=== PATIENT | male | born 1970 | race Caucasian/White ===

== ENCOUNTER 2017-04-24 05:15 | Observation (INO) | payer OTHER ==
[2017-04-24] MEDS ORDERED: SODIUM CHLORIDE 0.9% 1,000 ML IV STA (05:58)
--- NOTE | 2017-04-24 06:16 | ED ---
Dizziness HPI - General Chief Complaint: Dizziness Stated Complaint: Dizziness Time Seen by Provider: 04/24/17 05:57 Source: EMS Mode of arrival: EMS Limitations: no limitations - History of Present Illness Initial Comments: This patient is 46-year-old man who presents to be evaluated for what he is constant dizziness. He is describing as a spinning sensation. He states that also is accompanied by numbness and tingling to his scalp and to his fingers and feet. Patient states that this been going on for months to possibly years and is intermittent. States the episodes, most frequently in the morning. He has tried taking orange juice for this bleeding it may be related to blood sugar but has no effect. MD Complaint: dizziness -: month(s) Timing: intermittent Description: "room spinning" History of Same: Yes History of Trauma: No Severity: moderate Improves With: nothing Worsens With: nothing - Related Data Allergies Allergy/AdvReac Type Severity Reaction Status Date / Time meperidine [From Demerol] Allergy Nausea Verified 04/24/17 05:27 Review of Systems ROS Statement: Those systems with pertinent positive or pertinent negative responses have been documented in the HPI. ROS Other: All systems not noted in ROS Statement are negative. Constitutional: Denies: fever, chills Respiratory: Denies: cough, dyspnea Cardiovascular: Denies: chest pain, edema Gastrointestinal: Denies: abdominal pain, vomiting, diarrhea Genitourinary: Denies: dysuria, hematuria Musculoskeletal: Denies: back pain Skin: Denies: rash Neurological: Reports: paresthesias. Denies: headache, weakness, numbness Psychiatric: Reports: anxiety Past Medical History Past Medical History: No Reported History Additional Past Medical History / Comment(s): Bipolar "when younger" per patient. History of Any Multi-Drug Resistant Organisms: None Reported Past Surgical History: No Surgical Hx Reported Past Psychological History: Bipolar Smoking Status: Former smoker Past Alcohol Use History: None Reported Past Drug Use History: None Reported General Exam Limitations: no limitations General appearance: alert, in no apparent distress, obese Head exam: Present: atraumatic, normocephalic, normal inspection Eye exam: Present: normal appearance. Absent: scleral icterus, conjunctival injection ENT exam: Present: normal oropharynx Neck exam: Present: normal inspection, full ROM Respiratory exam: Present: normal lung sounds bilaterally. Absent: respiratory distress, wheezes, rales, rhonchi, stridor Cardiovascular Exam: Present: regular rate, normal rhythm, normal heart sounds. Absent: systolic murmur, diastolic murmur, rubs, gallop GI/Abdominal exam: Present: soft. Absent: distended, tenderness, guarding, rebound, mass, pulsatile mass Extremities exam: Present: normal inspection, normal capillary refill. Absent: pedal edema, calf tenderness Back exam: Present: normal inspection. Absent: CVA tenderness (R), CVA tenderness (L) Neurological exam: Present: alert Psychiatric exam: Present: anxious Skin exam: Present: warm, dry, intact, normal color. Absent: rash Course Vital Signs 04/24/17 04/24/17 04/24/17 05:16 06:45 06:59 Temperature 98.0 F 98.2 F Pulse Rate 63 65 Pulse Rate [ 60 Sitting Machine Set Up Operator Paper Goods] Pulse Rate [ 69 Standing Machine Set Up Operator Paper Goods ] Pulse Rate [ 64 Supine Machine Set Up Operator Paper Goods] Respiratory 20 20 Rate Blood Pressure 150/93 162/96 Blood Pressure 168/95 [Right Arm Sitting] Blood Pressure 170/101 [Right Arm Standing] Blood Pressure 167/93 [Right Arm Supine] O2 Sat by Pulse 66 L Oximetry EKG Findings - EKG Results: EKG: interpreted by CHERYL CONTRERAS, sinus rhythm (Rate 64 bpm), normal axis, normal QRS, normal ST/T, no acute changes Medical Decision Making - Lab Data Result diagrams: 04/24/17 06:20 04/24/17 06:20 Lab Results 04/24/17 04/24/17 04/24/17 Range/Units 06:20 06:20 06:20 WBC 8.5 (3.8-10.6) k/uL RBC 4.87 (4.30-5.90) m/uL Hgb 14.9 (13.0-17.5) gm/dL Hct 44.7 (39.0-53.0) % MCV 91.8 (80.0-100.0) fL MCH 30.6 (25.0-35.0) pg MCHC 33.4 (31.0-37.0) g/dL RDW 13.4 (11.5-15.5) % Plt Count 196 (150-450) k/uL Neutrophils % 75 % Lymphocytes % 13 % Monocytes % 6 % Eosinophils % 2 % Basophils % 1 % Neutrophils # 6.3 (1.3-7.7) k/uL Lymphocytes # 1.1 (1.0-4.8) k/uL Monocytes # 0.5 (0-1.0) k/uL Eosinophils # 0.2 (0-0.7) k/uL Basophils # 0.1 (0-0.2) k/uL Sodium 138 (137-145) mmol/L Potassium 4.0 (3.5-5.1) mmol/L Chloride 103 (98-107) mmol/L Carbon Dioxide 23 (22-30) mmol/L Anion Gap 12 mmol/L BUN 22 H (9-20) mg/dL Creatinine 0.74 (0.66-1.25) mg/dL Est GFR (MDRD) Af Amer >60 (>60 ml/min/1.73 sqM) Est GFR (MDRD) Non-Af >60 (>60 ml/min/1.73 sqM) Glucose 127 H (74-99) mg/dL Calcium 9.1 (8.4-10.2) mg/dL Total Bilirubin 1.2 (0.2-1.3) mg/dL AST 28 (17-59) U/L ALT 63 (21-72) U/L Alkaline Phosphatase 65 (38-126) U/L Troponin I (0.000-0.034) ng/mL Total Protein 6.9 (6.3-8.2) g/dL Albumin 4.0 (3.5-5.0) g/dL Urine Color Light Yellow Urine Appearance Clear (Clear) Urine pH 6.5 (5.0-8.0) Ur Specific [place] 1.015 (1.001-1.035) Urine Protein Negative (Negative) Urine Glucose (UA) Negative (Negative) Urine Ketones Negative (Negative) Urine Blood Negative (Negative) Urine Nitrite Negative (Negative) Urine Bilirubin Negative (Negative) Urine Urobilinogen <2.0 (<2.0) mg/dL Ur Leukocyte Esterase Negative (Negative) Urine Opiates Screen Not Detected (NotDetected) Ur Oxycodone Screen Not Detected (NotDetected) Urine Methadone Screen Not Detected (NotDetected) Ur Propoxyphene Screen Not Detected (NotDetected) Ur Barbiturates Screen Not Detected (NotDetected) U Tricyclic Antidepress Not Detected (NotDetected) Ur Phencyclidine Scrn Not Detected (NotDetected) Ur Amphetamines Screen Not Detected (NotDetected) U Methamphetamines Scrn Not Detected (NotDetected) U Benzodiazepines Scrn Not Detected (NotDetected) Urine Cocaine Screen Not Detected (NotDetected) U Marijuana (THC) Screen Not Detected (NotDetected) 04/24/17 Range/Units 06:20 WBC (3.8-10.6) k/uL RBC (4.30-5.90) m/uL Hgb (13.0-17.5) gm/dL Hct (39.0-53.0) % MCV (80.0-100.0) fL MCH (25.0-35.0) pg MCHC (31.0-37.0) g/dL RDW (11.5-15.5) % Plt Count (150-450) k/uL Neutrophils % % Lymphocytes % % Monocytes % % Eosinophils % % Basophils % % Neutrophils # (1.3-7.7) k/uL Lymphocytes # (1.0-4.8) k/uL Monocytes # (0-1.0) k/uL Eosinophils # (0-0.7) k/uL Basophils # (0-0.2) k/uL Sodium (137-145) mmol/L Potassium (3.5-5.1) mmol/L Chloride (98-107) mmol/L Carbon Dioxide (22-30) mmol/L Anion Gap mmol/L BUN (9-20) mg/dL Creatinine (0.66-1.25) mg/dL Est GFR (MDRD) Af Amer (>60 ml/min/1.73 sqM) Est GFR (MDRD) Non-Af (>60 ml/min/1.73 sqM) Glucose (74-99) mg/dL Calcium (8.4-10.2) mg/dL Total Bilirubin (0.2-1.3) mg/dL AST (17-59) U/L ALT (21-72) U/L Alkaline Phosphatase (38-126) U/L Troponin I <0.012 (0.000-0.034) ng/mL Total Protein (6.3-8.2) g/dL Albumin (3.5-5.0) g/dL Urine Color Urine Appearance (Clear) Urine pH (5.0-8.0) Ur Specific [place] (1.001-1.035) Urine Protein (Negative) Urine Glucose (UA) (Negative) Urine Ketones (Negative) Urine Blood (Negative) Urine Nitrite (Negative) Urine Bilirubin (Negative) Urine Urobilinogen (<2.0) mg/dL Ur Leukocyte Esterase (Negative) Urine Opiates Screen (NotDetected) Ur Oxycodone Screen (NotDetected) Urine Methadone Screen (NotDetected) Ur Propoxyphene Screen (NotDetected) Ur Barbiturates Screen (NotDetected) U Tricyclic Antidepress (NotDetected) Ur Phencyclidine Scrn (NotDetected) Ur Amphetamines Screen (NotDetected) U Methamphetamines Scrn (NotDetected) U Benzodiazepines Scrn (NotDetected) Urine Cocaine Screen (NotDetected) U Marijuana (THC) Screen (NotDetected) Disposition Clinical Impression: Episodic lightheadedness Disposition: ADMITTED IP TO THIS [facility] Condition: Fair Referrals: Skyler Velázquez MD [Primary Care Provider] - 1-2 days
[2017-04-24 06:49] LABS: Appearance,Urine Clear (Clear); Bilirubin,Urine Negative (Negative); Glucose,Urine (UA) Negative (Negative); Ketones,Urine Negative (Negative); Leukocyte Esterase,Urine Negative (Negative); Nitrite,Urine Negative (Negative); PH, Urine 6.5 (5.0-8.0); Protein,Urine Negative (Negative); Specific Gravity,Urine 1.015 (1.001-1.035); UA Billing (MACRO vs. MICRO) CHEM; Urobilinogen,Urine <2.0 mg/dL (<2.0)
[2017-04-24 06:50] LABS: Basophils # (A) 0.1 k/uL (0-0.2); Basophils % (A) 1 %; CH 31.5; CHCM 34.5; Eosinophils # (A) 0.2 k/uL (0-0.7); Eosinophils % (A) 2 %; HCT 44.7 % (39.0-53.0); HDW 2.65; HGB 14.9 gm/dL (13.0-17.5); Luc # (Auto) 0.25; Luc % (Auto) 3; Lymphocytes # (A) 1.1 k/uL (1.0-4.8); Lymphocytes % (A) 13 %; MCH 30.6 pg (25.0-35.0); MCHC 33.4 g/dL (31.0-37.0); MCV 91.8 fL (80.0-100.0); Mean Platelet Volume 7.7; Monocytes # (A) 0.5 k/uL (0-1.0); Monocytes % (A) 6 %; Neutrophils # (A) 6.3 k/uL (1.3-7.7); Neutrophils % (A) 75 %; RBC 4.87 m/uL (4.30-5.90); RDW 13.4 % (11.5-15.5); WBC 8.5 k/uL (3.8-10.6); WBC (Perox) 8.19
[2017-04-24 07:02] LABS: ALT 63 U/L (21-72); AST 28 U/L (17-59); Alkaline Phosphatase 65 U/L (38-126); Anion Gap 12 mmol/L; Blood Urea Nitrogen 22 mg/dL (9-20); Calcium 9.1 mg/dL (8.4-10.2); Carbon Dioxide 23 mmol/L (22-30); Chloride 103 mmol/L (98-107); Glucose 127 mg/dL (74-99); Non-African American GFR(MDRD) >60 (>60 ml/min/1.73 sqM); Sodium 138 mmol/L (137-145); Total Bilirubin 1.2 mg/dL (0.2-1.3); Total Protein 6.9 g/dL (6.3-8.2)
[2017-04-24] MEDS ORDERED: NITROGLYCERIN SL TABS 0.4 MG TAB SUBLINGUAL PRN (08:32)
[2017-04-24] MEDS: SODIUM CHLORIDE 0.9% 1,000 ML IV SCH (09:10)
--- NOTE | 2017-04-24 12:41 | CONS ---
DATE OF CONSULTATION: 04/24/2017 Mr. Donnelly is a 46-year-old gentleman who is seen for cardiac evaluation. Patient's emergency room records were reviewed. Patient has been having intermittent dizzy spells for 3 weeks. The dizziness comes and goes. He describes as a spinning sensation associated with some nausea. Patient also feels some tingling and numbness in his calves as well as fingers. Denies any double vision. Denies any definite history of syncope. Denies any history of injury. Denies any speech problem. Patient denies any history suggestive of angina. There is a family history of diabetes. There is no family history of premature coronary artery disease. Patient stopped smoking about a year ago. No history of any major surgeries. History of bipolar depression. SOCIAL HISTORY: Former smoker. MEDICATIONS: None. PHYSICAL EXAMINATION: At present reveals a 46-year-old obesely built gentleman who does not appear to be in any acute distress. Patient's blood pressure is 150/76 mmHg. HEAD AND ENT: Examination is negative. NECK: Supple. There is no increase in jugular venous pressure. Both the carotid pulses are felt. There is no bruit. CHEST: Symmetrical. HEART: The PMI is not felt. First and second heart sounds are normal. There is no evidence of any murmur. LUNGS: Clinically clear to auscultation and percussion. ABDOMEN: Soft. Liver and spleen are not enlarged. Bowel sounds are heard. EXTREMITIES: Peripheral pulsations are 1+. EKG shows normal sinus rhythm without any acute ischemic changes. Patient's laboratory tests are normal. Initial troponin is normal. No arrhythmias are noted on the monitor. FINAL IMPRESSION: 1. This patient is having intermittent dizzy spells which sound like vertigo. The patient can be treated symptomatically. May need ENT consultation. These episodes of dizziness do not appear to be cardiac related. We will monitor the patient to rule out any significant arrhythmia. Echo and Doppler study will be done. 2. The patient has a borderline elevation in the blood pressure. The patient will be advised to keep a record of blood pressure at home and if blood pressure remains elevated he may need to be treated. Thank you very much for letting me participate in the care of this nice gentleman.
[2017-04-24 12:54] LABS: Creatine Kinase 65 U/L (55-170)
[2017-04-24 13:07] LABS: Creatine Kinase MB 0.6 ng/mL (0.0-2.4); Troponin I <0.012 ng/mL (0.000-0.034)
[2017-04-24] MEDS: BISOPROLOL-HCTZ 5-6.25 MG 1 EACH TAB PO SCH (16:32)
[2017-04-24 19:16] LABS: Creatine Kinase 61 U/L (55-170)
[2017-04-24 19:28] LABS: Creatine Kinase MB 0.5 ng/mL (0.0-2.4); Troponin I <0.012 ng/mL (0.000-0.034)
--- NOTE | 2017-04-24 19:42 | HP ---
CHIEF COMPLAINT: Dizziness. HISTORY OF PRESENT ILLNESS: Mr. Donnelly is a 46-year-old male with history of bipolar disorder and no other medical history, came to the hospital with complaints of dizziness. There is a constant spinning sensation, especially when he is getting out of the bed, which has been present since yesterday which is also accompanied by numbness and tingling of his scalp and his fingers and feet. Patient says that it has been present for several years and has been intermittent. Patient says that he had a tooth pulled out about a month back and denied any problems until yesterday. No fever. No chills. Patient felt nauseated. No vomiting. Otherwise no recent illnesses. No sick contacts at home. No recent travel. Patient's symptoms improve when he lies down on the bed, gets worse when he is getting out of the bed. REVIEW OF SYSTEMS: CONSTITUTIONAL: No fever. No chills. No weakness. RESPIRATORY: No cough or sputum production. CARDIOVASCULAR: No chest pain. Some short of breath. ABDOMEN: No nausea, vomiting or abdominal pain. NEUROLOGIC: Patient does have dizziness and spinning sensation/vertigo and also has numbness. No ( ). No focal weakness. ENDOCRINE: Negative. PSYCHIATRIC: Anxious. SKIN: Negative. MUSCULOSKELETAL: Negative. All other fourteen-point review of systems negative except as above. PAST MEDICAL HISTORY: Bipolar disorder. No history of hypertension or diabetes mellitus. PAST SURGICAL HISTORY: None. SOCIAL HISTORY: Patient is a former smoker. Denied any smoking now. Denied any alcohol. Denied any drugs or IVDU. FAMILY HISTORY: Denied any history of hypertension or diabetes mellitus in the family. Patient does have a history of diabetes mellitus in his mother. The patient does not have any history of diabetes mellitus. No history of hypertension or premature heart disease. ALLERGIES: MEPERIDINE. No known medications at home. PHYSICAL EXAMINATION: A 46-year-old male, lying in the bed. Awake, alert, x3, appears to be in no apparent distress. VITALS: Blood pressure is 155/84, pulse is 68, respiratory rate 16, temperature afebrile, pulse ox 96% on room air. HEENT: Atraumatic, normocephalic. NECK: Supple. No JVD. CVS: S1, S2 heard. No murmur. No gallop. No rub. LUNGS: Bilateral air entry is present. No rhonchi. No crackles. Nonlabored breathing. ABDOMEN: Soft, nontender, obese. Bowel sounds are present. OUTSOLE ROUNDER: Awake, alert x3. No focal deficit. EXTREMITIES: No edema. Pulses palpable bilaterally. No clubbing or cyanosis. PSYCHIATRIC: Cooperative. LABORATORY DATA: WBC 8.5, hemoglobin 14.9, platelets 196. Sodium 138, potassium 4.0, chloride 103, bicarb is 23, BUN 22, creatinine 0.74. Lactic acid 1.5. Calcium 9.1. Liver enzymes are not elevated. Troponin x2 negative. Albumin 4.0. UA negative. UDS negative. EKG showed normal sinus rhythm. IMPRESSION: 1. Dizziness with spinning sensation likely secondary to benign positional vertigo. Will rule out cardiac issues and EKG showed normal sinus rhythm, troponin negative. The patient was seen by Cardiology and a 2-D echocardiogram to evaluate any structural abnormalities in the heart. Otherwise, his symptoms are unlikely from cardiac origin. Patient will be started on meclizine and follow up closely and currently symptomatic management. 2. History of bipolar disorder, currently not on any medications. Outpatient [facility] followup recommended. 3. Deep venous thrombosis with sequential compression devices and early ambulation. DISCUSSION AND PLAN: The patient will be continued on telemetry monitoring and follow 2-D echo report and continue with the meclizine p.r.n. Further recommendations based on clinical course. Will consult Neurology for consultation if he does not improve.
[2017-04-24] MEDS: MECLIZINE 12.5 MG TAB PO PRN (21:21)
[2017-04-24] MEDS ORDERED: ALPRAZolam 0.25 MG TAB PO PRN (21:54)
[2017-04-24] MEDS: MELATONIN 5 MG TABLET PO SCH (22:53)
--- NOTE | 2017-04-24 23:56 | CT ---
EXAM: CT Head Without Intravenous Contrast CLINICAL HISTORY: Reason: head tingling TECHNIQUE: Axial computed tomography images of the head/brain without intravenous contrast. Coronal and sagittal reformats submitted. CTDI is 57.40 mGy and DLP is 1047.7 mGy-cm. This CT exam was performed using one or more of the following dose reduction techniques: automated exposure control, adjustment of the mA and/or kV according to patient size, and/or use of iterative reconstruction technique. COMPARISON: No relevant prior studies available. FINDINGS: Brain: Unremarkable. No hemorrhage. No significant white matter disease. No edema. Ventricles: Unremarkable. No ventriculomegaly. Bones/joints: Unremarkable. No acute fracture. Soft tissues: Unremarkable. Sinuses: Unremarkable as visualized. No acute sinusitis. Mastoid air cells: Unremarkable as visualized. No mastoid effusion. IMPRESSION: Normal head/brain CT.
[2017-04-25 06:35] LABS: Cholesterol 164 mg/dL (<200); HDL Cholesterol 48 mg/dL (40-60); Triglycerides 94 mg/dL (<150)
[2017-04-25] MEDS ORDERED: ASPIRIN 325 MG TAB ONE (09:00)
[2017-04-25] MEDS ORDERED: MECLIZINE 12.5 MG TAB ONE (09:00)
[2017-04-25] MEDS ORDERED: BISOPROLOL-HCTZ 5-6.25 MG 1 EACH TAB ONE (09:00)
[2017-04-25] MEDS: BISOPROLOL-HCTZ 5-6.25 MG 1 EACH TAB PO SCH (11:16)
[2017-04-25] MEDS: SODIUM CHLORIDE 0.9% 1,000 ML IV SCH (11:16)
[2017-04-25] MEDS: ASPIRIN 325 MG TAB PO SCH (11:16)
--- NOTE | 2017-04-25 14:35 | PN ---
This patient was admitted with symptoms of dizziness and vertigo. The overall picture is suggestive for labyrinthitis. Patient's vital signs remained stable. No dysrhythmias are noted. The patient is feeling better. After being started on Antivert for dizziness is improved. He is feeling slightly tired. Blood pressure is 143/90 mmHg. First and second heart sounds are normal. Lungs are clinically clear to auscultation and percussion. We will recommend to continue the patient on medical treatment.
[2017-04-25] MEDS: MECLIZINE 12.5 MG TAB PO PRN (21:23)
[2017-04-25] MEDS: MELATONIN 5 MG TABLET PO SCH (21:23)
[2017-04-26 00:03] VITALS: RESP 18
[2017-04-26] MEDS ORDERED: ACETAMINOPHEN TAB 325 MG TAB PO PRN (04:07)
[2017-04-26] MEDS: BISOPROLOL-HCTZ 5-6.25 MG 1 EACH TAB PO SCH (08:40)
[2017-04-26] MEDS: ASPIRIN 325 MG TAB PO SCH (08:40)
[2017-04-26] MEDS: SODIUM CHLORIDE 0.9% 1,000 ML IV SCH (08:51)
[2017-04-26 08:53] VITALS: BMI 44.2
--- NOTE | 2017-04-26 11:03 | PN ---
DATE OF SERVICE: 04/25/2017 INTERVAL HISTORY: Mr. Donnelly is a 46-year-old male with known history of bipolar disorder and no other medical problems admitted to the hospital with complaints of dizziness and complaining of constant spinning sensation especially when he is getting out of bed. The patient was started on meclizine. Currently symptomatically improved now. Otherwise, still having episode of dizziness in the morning today. No chest pain or short of breath. CT of the head was order, which is negative for any ( ) process. Cardiology on board. A 2-D echo is pending at this time. Otherwise, the patient ( ) doing well. No chest pain, nausea, vomiting or abdominal pain. No diarrhea. No dysuria. No headache. Currently no dizziness. No numbness or tingling. ( ) PHYSICAL EXAMINATION: A 46-year-old male lying in bed, awake, alert, oriented x3, appears to be in no apparent distress. VITALS: Blood pressure is 138/73, pulse is 74, respiration 20, temperature afebrile, pulse ox 97% on room air. HEENT: Atraumatic, normocephalic. Neck is supple. No JVD. CVS EXAM: S1, S2 heard. No murmur, no gallop, no rub. LUNGS: Bilateral air entry is present. No wheezing. No crackles. Nonlabored breathing. ABDOMEN: Soft, obese. Bowel sounds presents. PROCESS IMPROVEMENT ENGINEER: Alert and oriented x3. No focal deficit. EXTREMITIES: No edema. Pulses palpable bilaterally. No clubbing or cyanosis. PSYCHIATRIC: Cooperative. LABORATORY DATA: Reviewed. Troponin x3 negative. LDL is a 97. IMPRESSION: 1. Dizziness and spinning sensation likely secondary to benign positional vertigo. Cardiac workup has been negative so far. A 2-D echo was done, report is pending now. Continue with the meclizine and patient symptomatically improving. 2. History of bipolar disorder, currently not on any medications. 3. Morbid obesity. Body mass index 44.3. 4. Deep venous thrombosis prophylaxis. DISCUSSION AND PLAN: Patient will be continued on telemonitoring. Will follow up on 2-D echo report. CT head is negative. Will continue the meclizine and anticipate discharge in 24 hours with more clinical improvement.
--- NOTE | 2017-04-26 11:47 | ECHOF ---
Referral Reason:dizzyness MEASUREMENTS -------- HEIGHT: 152.4 cm WEIGHT: 136.1 kg BP: 150/60 IVSd: 1.2 cm (0.6 - 1.1) LVIDd: 4.4 cm (3.9 - 5.3) LVPWd: 1.2 cm (0.6 - 1.1) IVSs: 1.4 cm LVIDs: 2.8 cm LVPWs: 1.3 cm LA Diam: 3.7 cm (2.7 - 3.8) Ao Diam: 3.3 cm (2.0 - 3.7) AV Cusp: 2.3 cm (1.5 - 2.6) LA Diam: 3.9 cm (2.7 - 3.8) MV EXCURSION: 17.354 mm (> 18.000) MV EF SLOPE: 91 mm/s (70 - 150) EPSS: 0.5 cm MV E Mikey: 0.61 m/s MV DecT: 266 ms MV A Mikey: 0.51 m/s MV E/A Ratio: 1.18 RAP: 5.00 mmHg RVSP: 15.95 mmHg FINDINGS -------- Sinus rhythm. This was a technically adequate study. Morbid Obesity There is mild concentric left ventricular hypertrophy. Overall left ventricular systolic function is low-normal with, an EF between 50 - 55 %. The right ventricle is normal in size. The left atrial size is normal. The right atrial size is normal. The aortic valve is trileaflet, and appears structurally normal. No aortic stenosis or regurgitation. Mild mitral annular calcification present. Mild mitral regurgitation is present. Mild tricuspid regurgitation present. There is no evidence of pulmonary hypertension. The right ventricular systolic pressure, as measured by Doppler, is 15.95mmHg. There is no pulmonic regurgitation present. The aortic root size is normal. There is no pericardial effusion. CONCLUSIONS -------- 1. Morbid Obesity 2. The aortic root size is normal. 3. There is no pericardial effusion. 4. There is mild concentric left ventricular hypertrophy. 5. Overall left ventricular systolic function is low-normal with, an EF between 50 - 55 %. 6. Mild mitral annular calcification present. 7. Mild mitral regurgitation is present. 8. Mild tricuspid regurgitation present. 9. There is no evidence of pulmonary hypertension. 10. The right ventricular systolic pressure, as measured by Doppler, is 15.95mmHg. 11. There is no pulmonic regurgitation present. ACCOUNT MANAGER B2B: Mackenzie Connell RDCS
[2017-04-26 13:02] VITALS: BP 136/77; PULSE 56; TEMP 98
== END 2017-04-26 15:25 | disposition home or self-care (01) ==
LOC: EC 05:15 → 6SEL 08:33 → 3OBS 04-25 20:22
PROVIDERS: ADMIT Family Medicine; ATTEND Family Medicine
DX: R42 Dizziness and giddiness (principal); F31.9 Bipolar disorder, unspecified; E66.01 Morbid (severe) obesity due to excess calories; R53.83 Other fatigue; R20.0 Anesthesia of skin; R20.2 Paresthesia of skin; R11.0 Nausea; F41.9 Anxiety disorder, unspecified; Z68.41 Body mass index [BMI] 40.0-44.9, adult; Z87.891 Personal history of nicotine dependence; Z88.5 Allergy status to narcotic agent; Z83.3 Family history of diabetes mellitus
CPT/HCPCS: 96360 ×2; 99285 ×2; 36415; 93005; 93306; 80061; 80053; 82550; 82553; 83605; 84484; 85025; 81003; 80306; 70450; G0378 ×3

== ENCOUNTER → 2018-03-24 | Outpatient (CLI) | payer OTHER ==
--- NOTE | 2018-03-24 20:14 | CONS ---
CONSULTATION DATE OF SERVICE: 03/24/2018 This patient is a 47-year-old gentleman who has been evaluated in the sleep center for possible obstructive sleep apnea-hypopnea syndrome. His sleep schedule is from 10 p.m. to 7 a.m. on working days and from around 1 a.m. until 10:30 a.m. on weekends. No problem with falling asleep. No TV in bedroom. He sleeps by himself, so there is no clear information at the present time about his breathing and snoring. He wakes up from sleep once with nocturia and sometimes with a dry mouth. [place] Sleepiness Scale is 1. Patient may take one nap a day around 1 p.m. PAST MEDICAL HISTORY: Positive for hypertension. PAST SURGICAL HISTORY: Tonsillectomy. CURRENT MEDICATIONS: 1. Bisoprolol hydrochlorothiazide. 2. Cozaar. 3. Clonidine. SOCIAL HISTORY: Positive for smoking for 30 years, up to 4 packs a day. Quit about 2 years ago. Alcohol consumption occasional. REVIEW OF SYSTEMS: Patient's weight increased over the last 5 years of about 55 pounds; he believes it is partially related to stopped smoking. Awakenings from sleep once with nocturia and dry mouth. Once a day the patient may take naps. FAMILY HISTORY: Hyperlipidemia, arthritis, cancer, diabetes, ulcers. PHYSICAL EXAMINATION: GENERAL A pleasant 47-year-old gentleman without distress. VITAL SIGNS: BP 133/80, HR 74, RR 16, height 5 feet 9-1/2 inches, weight 312, BMI 45.5, temperature 98.7, oxygen saturation at room air 94%. HEENT: PERRLA, EOMI. Evaluation of oropharynx showed tongue protrudes midline; moderately low to normal position of soft palate. Slight restriction of nasal breathing. NECK: Supple. No JVD. Thyroid is not palpable. Wide neck: 17-1/4 inches in circumference. LUNGS: Clear to percussion and to auscultation. Good air exchange. No wheezing or rhonchi. HEART: S1, S2 regular. No murmurs, gallops or rubs. ABDOMEN: Obese. EXTREMITIES : No clubbing or cyanosis. ENVIRONMENTAL HEALTH AND SAFETY INTERN: Awake, alert, and oriented X3. Cranial nerves 2 to 7 intact. There is no fasciculation or atrophy. noted. No focal deficits observed. IMPRESSION: 1. Awakenings from sleep with nocturia and dry mouth. Patient sleeps by himself; no clear information about his breathing and snoring during sleep. Slightly low position of soft palate, wide neck. Patient may take naps once a day. Possible obstructive sleep apnea-hypopnea syndrome. 2. Obesity; body mass index 45.4. 3. Hypertension. Patient is on treatment with medications. 4. Status post tonsillectomy. PLAN: 1. Polysomnography for evaluation of patient's breathing during sleep. 2. CPAP/BiPAP titration if sleep study confirms obstructive sleep apnea-hypopnea syndrome. 3. Preferable position during sleep on the side. 4. No driving if patient feels any sleepiness. 5. I will see patient for follow up visit to explain results of testing and following plan. Thank you very much for referring this patient for consultation. Sincerely, Brendan Marshall MD, PhD, FAASM Diplomat of [place] [employer] [place] [employer] Platform Supervisor of [facility] [place] MMODL / HEATHERN: [id number] /
== END | disposition home or self-care (01) ==
LOC: SLEEP 15:53
PROVIDERS: ATTEND Internal Medicine
DX: R35.1 Nocturia (principal); R68.2 Dry mouth, unspecified; M27.8 Other specified diseases of jaws; E66.9 Obesity, unspecified; I10 Essential (primary) hypertension; Z90.89 Acquired absence of other organs; Z98.890 Other specified postprocedural states; Z68.42 Body mass index [BMI] 45.0-49.9, adult; Z79.899 Other long term (current) drug therapy; Z87.891 Personal history of nicotine dependence
CPT/HCPCS: 99211

== ENCOUNTER → 2018-07-07 | Outpatient (CLI) | payer OTHER ==
--- NOTE | 2018-07-07 16:54 | PN ---
PROGRESS NOTE DATE OF SERVICE: 07/07/2018 This 47-year-old gentleman has been followed in the sleep center for treatment of obstructive sleep apnea-hypopnea syndrome. Recently the patient was started on treatment with CPAP and he is able to use the CPAP equipment during the night without significant problems. No snoring with the CPAP. I reviewed the results of his sleep study that showed apnea-hypopnea index of 27.6. I checked the patient's CPAP unit. Usage is every night: / nights. On nights usage was for more than 4 hours, average usage 5.0 hours. The machine is in automatic regimen 5 to 20 cm of water. Most of the time pressure is in the range of 12.3. Leak from the mask is 18 L/minute, which is borderline. Apnea-hypopnea index 5.9. No symptoms of excessive daytime sleepiness. [place] Sleepiness Scale is 1. MEDICATIONS: Cozaar, clonidine, bisoprolol. PHYSICAL EXAMINATION: GENERAL A pleasant gentleman without distress. VITAL SIGNS: BP 139/89, HR 64, RR 20, temperature 98.7. Weight 313.6. HEENT: PERRLA, EOMI. Evaluation of oropharynx showed tongue protrudes midline; low position of soft palate. NECK: Supple. No JVD. Thyroid is not palpable. LUNGS: Clear to percussion and to auscultation. Good air exchange. No wheezing or rhonchi. HEART: S1, S2 regular. No murmurs, gallops or rubs. ABDOMEN: Obese. EXTREMITIES : No clubbing or cyanosis. MARKET DEVELOPER: Awake, alert, and oriented X3. Cranial nerves 2 to 7 intact. There is no fasciculation or atrophy. noted. No focal deficits observed. IMPRESSION: 1. Obstructive sleep apnea-hypopnea syndrome in a patient who demonstrated good compliance with treatment, benefitting from treatment. 2. Obesity. 3. Hypertension. 4. Status post tonsillectomy. 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 PLAN: 1. Patient will continue to use CPAP equipment every night for the whole night. 2. Sleep hygiene with regular time in bed for at least 7-1/2 hours. 3. Precautions related to driving. No driving if feeling any sleepiness. Patient is aware of civil and criminal liability for unsafe driving. 4. We will provide prescriptions for all necessary CPAP supplies, including mask, tube, filters. 5. Losing weight. Thank you very much for allowing me to participate in the management of your patient. Sincerely, Brendan Marshall MD, PhD, FAASM Diplomat of [place] [employer] [place] [employer] Che[place] HARIKA / MARK: [id number] /
== END | disposition home or self-care (01) ==
LOC: SLEEP 15:23
PROVIDERS: ATTEND Internal Medicine
DX: G47.33 Obstructive sleep apnea (adult) (pediatric) (principal); E66.9 Obesity, unspecified; I10 Essential (primary) hypertension; Z99.89 Dependence on other enabling machines and devices; Z79.899 Other long term (current) drug therapy; Z90.89 Acquired absence of other organs

== ENCOUNTER 2018-09-05 11:37 | Emergency (ER) | payer OTHER ==
[2018-09-05 12:02] VITALS: PULSE 63
--- NOTE | 2018-09-05 12:21 | ED ---
General Adult HPI - General Chief complaint: Extremity Injury, Upper Stated complaint: Thumb pain Time Seen by Provider: 09/05/18 12:04 Source: patient, RN notes reviewed Mode of arrival: ambulatory Limitations: no limitations - History of Present Illness Initial comments: Patient 48-year-old male presented to the emergency room today with chief complaint of infection right thumb. Patient states that last week he was picking up a load anything said 2 small metal slivers down to his right thumb. States he was able to remove 1. He states that the pain became worse when she came here. He states that they did labs and an area and got some drainage out of it. States been on antibiotics last day and a half. Patient states that he still having pain to the right thumb. States worried that there is still a sliver in it. Denies any other complaints at this time. Patient denies any recent fever, chills, shortness of breath, chest pain, back pain, numbness or tingling, headaches or visual changes, or any other complaints. - Related Data Home Medications Medication Instructions Recorded Confirmed Bisoprolol-Hctz 5-6.25 mg [Ziac 1 tab PO DAILY 04/24/17 09/05/18 5-6.25 MG] Cephalexin [Keflex] 500 mg PO TID 09/05/18 09/05/18 Clonidine Unknown Dose 1 tab PO DAILY 09/05/18 09/05/18 Clotrimazole/Betameth Cream 1 applic TOPICAL BID 09/05/18 09/05/18 [Lotrisone] Ibuprofen [Motrin] 600 mg PO TID PRN 09/05/18 09/05/18 Losartan Unknown Dose 1 tab PO DAILY 09/05/18 09/05/18 Previous Rx's Medication Instructions Recorded Ibuprofen [Motrin] 600 mg PO Q6HR PRN #30 day 09/05/18 Sulfamethox-Tmp 800-160Mg [Bactrim 1 tab PO Q12HR #20 tab 09/05/18 DS 800-160 mg] Allergies Allergy/AdvReac Type Severity Reaction Status Date / Time meperidine [From Demerol] Allergy Nausea Verified 09/05/18 13:00 Review of Systems ROS Statement: Those systems with pertinent positive or pertinent negative responses have been documented in the HPI. ROS Other: All systems not noted in ROS Statement are negative. Past Medical History Past Medical History: No Reported History Additional Past Medical History / Comment(s): Bipolar "when younger" per patient. History of Any Multi-Drug Resistant Organisms: None Reported Past Surgical History: No Surgical Hx Reported Additional Past Surgical History / Comment(s): oral surgery 3 weeks ago for removal of tooth Past Anesthesia/Blood Transfusion Reactions: No Reported Reaction Past Psychological History: Bipolar Smoking Status: Former smoker Past Alcohol Use History: None Reported Past Drug Use History: None Reported - Past Family History Father Family Medical History: Diabetes Mellitus General Exam - General Exam Comments Initial Comments: General: The patient is awake and alert, in no distress, and does not appear acutely ill. Neck: The neck is supple, there is no tenderness or JVD. Cardiovascular: There is a regular rate and rhythm. No murmur, rub or gallop is appreciated. Respiratory: Lungs are clear to auscultation, respirations are non-labored, breath sounds are equal. No wheezes, stridor, rales, or rhonchi. Musculoskeletal: Patient does have moderate swelling to the right thumb. No lymphangitic streaking. Tender to the distal aspect locally. No active drainage. Neurological: A&O x 3. CN II-XII intact, There are no obvious motor or sensory deficits. Coordination appears grossly intact. Speech is normal. Skin: Skin is warm and dry and no rashes or lesions are noted. Psychiatric: Normal mood and affect. Limitations: no limitations Course Vital Signs 09/05/18 11:59 Temperature 98.3 F Pulse Rate 63 Respiratory 16 Rate Blood Pressure 132/76 O2 Sat by Pulse 98 Oximetry Medical Decision Making - Medical Decision Making Patient's x-ray reviewed and negative for any evidence of foreign body. No other acute abnormality. Patient's currently been on antibiotics for the last day and a half on Keflex. He does have some redness to the right thumb. Patient's vitals are stable. Patient will be started on Bactrim to cover for further infection. He is advised following up with orthopedic. Advised to return here to the emergency room if area of redness swelling increases or worsen or for any fevers. She states understanding and is in agreement. Disposition Clinical Impression: Infection of thumb Disposition: HOME SELF-CARE Condition: Good Instructions: Abscess (ED) Additional Instructions: Please follow-up orthopedics in the next 1-2 days. Please use Biaxin as prescribed. Please use warm compresses to the affected area. Please return to emergency room. Swelling, redness increases worsen or for any fever. Prescriptions: Ibuprofen [Motrin] 600 mg PO Q6HR PRN #30 day PRN Reason: Pain Sulfamethox-Tmp 800-160Mg [Bactrim DS 800-160 mg] 1 tab PO Q12HR #20 tab Is patient prescribed a controlled substance at d/c from ED?: No Referrals: Skyler Velázquez MD [Primary Care Provider] - 1-2 days Thomas Lerner MD [STAFF PHYSICIAN] - 1-2 days Time of Disposition: 13:38
--- NOTE | 2018-09-05 12:45 | XR ---
EXAMINATION TYPE: XR finger RT DATE OF EXAM: 09/05/2018 CLINICAL HISTORY: pain TECHNIQUE: 3 views of the first digit are submitted. COMPARISON: None FINDINGS: No displaced fracture is seen with certainty. Osseous protrusions at the first metacarpal head. Joint spaces are well-preserved. Correlate for soft tissue injury. IMPRESSION: No acute displaced fracture or dislocation.
[2018-09-05 14:06] VITALS: BP 152/96; RESP 18; TEMP 98.9
== END 2018-09-05 14:01 | disposition home or self-care (01) ==
LOC: EC 11:37
DX: L08.9 Local infection of the skin and subcutaneous tissue, unspecified (principal); F31.9 Bipolar disorder, unspecified; Z79.899 Other long term (current) drug therapy; Z88.5 Allergy status to narcotic agent; Z87.891 Personal history of nicotine dependence
CPT/HCPCS: 99283

== ENCOUNTER → 2019-06-22 | Outpatient (CLI) | payer OTHER ==
--- NOTE | 2019-06-22 18:01 | PN ---
PROGRESS NOTE DATE OF SERVICE: 06/22/2019 This patient is a 48-year-old gentleman who has been followed in Sleep Center for treatment of obstructive sleep apnea-hypopnea syndrome. The patient successfully continues to use CPAP equipment every night for the whole night. He takes the machine with him when he travels. 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 [place] Sleepiness Scale today is 0. I checked his CPAP unit. Range of pressure is from 5 to 20 with average pressure 12.2. Leak is 11 L/minute, which is within normal range. Apnea-hypopnea index is only 1.5, which is perfect. The patient is using it every night. For the last year, he used it 342 nights out of 365 nights, and 298 nights out of 365 nights for more than 4 hours, with average usage 6 hours per night. For the last month, he used it 25/30 nights for more than 4 hours. Apnea-hypopnea index for the whole year is 2.6, which is still within normal range. MEDICATIONS: 1. Cozaar. 2. Clonidine. 3. Bisoprolol. PHYSICAL EXAMINATION: GENERAL: A pleasant patient in no distress. VITAL SIGNS: BP 128/84, HR 76, RR 18, height 5 feet 9-1/2 inches, weight 326.6 pounds. The patient's weight has increased by 13 pounds compared with one year ago. Temperature 98.4, oxygen saturation at room air 98%. HEENT: PERRLA, EOMI. Evaluation of oropharynx showed tongue protrudes midline. Low position of soft palate. Mallampati III. NECK: Supple. No JVD. Thyroid is not palpable. LUNGS: Clear to percussion and to auscultation. Good air exchange. No wheezing or rhonchi. HEART: S1, S2 regular. No murmurs, gallops or rubs. ABDOMEN: Obese. EXTREMITIES: No clubbing or cyanosis. MIDDLE SCHOOL ASSISTANT PRINCIPAL: Awake, alert, and oriented X3. Cranial nerves 2 to 7 intact. There is no fasciculation or atrophy. noted. No focal deficits observed. IMPRESSION: 1. Obstructive sleep apnea-hypopnea syndrome. The patient demonstrated good compliance with treatment, benefitting from treatment. 2. Obesity. 3. Hypertension. 4. Status post tonsillectomy. 5. Allergies. 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 PLAN: 1. Prescription for all necessary CPAP supplies; additionally heated tube. 2. Patient may need evaluation by an allergologist for allergies. 3. Losing weight. 4. Sleep hygiene with regular time in bed for at least 7-1/2 hours. 5. Precautions related to driving. No driving if feeling any sleepiness. Patient is aware of civil and criminal liability for unsafe driving. Thank you very much for allowing me to participate in the management of your patient. Sincerely, Brendan Marshall MD, PhD, FAASM Diplomat of [place] [employer] [place] [employer] [facility] [place] MMODL / IJN: [id number] /

== ENCOUNTER 2019-10-02 13:50 | Emergency (ER) | payer OTHER ==
[2019-10-02 13:56] VITALS: PULSE 66; RESP 18; TEMP 98.1
--- NOTE | 2019-10-02 14:46 | ED ---
ENT HPI - General Chief complaint: ENT Stated complaint: Lip fungus Time Seen by Provider: 10/02/19 14:02 Source: patient Mode of arrival: ambulatory Limitations: no limitations - History of Present Illness Initial comments: Patient is a 49-year-old male presenting to the emergency Department with complaints of pain and dryness of his lips. Patient states he has been treated for the past 2 weeks for a fungal infection on his lips and his mouth. Patient states the treatment is not working. Patient went to an urgent care yesterday and was given another medication however his insurance does not cover this. Patient comes today looking for a different medication. Patient denies fever, chills. He is eating and drinking as normal. Patient has no other complaints at this time. Upon arrival to the ER, vital signs are stable. - Related Data Home Medications Medication Instructions Recorded Confirmed Bisoprolol-Hctz 5-6.25 mg [Ziac 1 tab PO DAILY 04/24/17 09/05/18 5-6.25 MG] Cephalexin [Keflex] 500 mg PO TID 09/05/18 09/05/18 Clonidine Unknown Dose 1 tab PO DAILY 09/05/18 09/05/18 Clotrimazole/Betameth Cream 1 applic TOPICAL BID 09/05/18 09/05/18 [Lotrisone] Ibuprofen [Motrin] 600 mg PO TID PRN 09/05/18 09/05/18 Losartan Unknown Dose 1 tab PO DAILY 09/05/18 09/05/18 Previous Rx's Medication Instructions Recorded Ibuprofen [Motrin] 600 mg PO Q6HR PRN #30 day 09/05/18 Sulfamethox-Tmp 800-160Mg [Bactrim 1 tab PO Q12HR #20 tab 09/05/18 DS 800-160 mg] Fluconazole 200 mg PO DAILY #1 tab 10/02/19 Griseofulvin, Microsize 500 mg PO DAILY 30 Days #30 tablet 10/02/19 [Griseofulvin] Allergies Allergy/AdvReac Type Severity Reaction Status Date / Time meperidine [From Demerol] Allergy Nausea Verified 10/02/19 13:51 Review of Systems ROS Statement: Those systems with pertinent positive or pertinent negative responses have been documented in the HPI. ROS Other: All systems not noted in ROS Statement are negative. Past Medical History Past Medical History: Hypertension Additional Past Medical History / Comment(s): Bipolar "when younger" per patient. History of Any Multi-Drug Resistant Organisms: MRSA Date of last positivie culture/infection: 09/08/18 MDRO Source:: MRSA FINGER Past Surgical History: No Surgical Hx Reported Additional Past Surgical History / Comment(s): oral surgery 3 weeks ago for removal of tooth Past Anesthesia/Blood Transfusion Reactions: No Reported Reaction Past Psychological History: Bipolar Smoking Status: Former smoker Past Alcohol Use History: None Reported Past Drug Use History: None Reported - Past Family History Father Family Medical History: Diabetes Mellitus General Exam - General Exam Comments Initial Comments: GENERAL: Well-appearing, well-nourished and in no acute distress. HEAD: Atraumatic, normocephalic. EYES: Pupils equal round and reactive to light, extraocular movements intact, sclera anicteric, conjunctiva are normal. ENT: Upper and lower lips are both dry and cracked. There is some erythematous spots on his lips as well as a white papule under his tongue. It is consistent with a fungal infection. TMs normal, nares patent, oropharynx clear without exudates. Moist mucous membranes. NECK: Normal range of motion, supple without lymphadenopathy or JVD. LUNGS: Breath sounds clear to auscultation bilaterally and equal. No wheezes rales or rhonchi. HEART: Regular rate and rhythm without murmurs, rubs or gallops. NEUROLOGICAL: Normal speech, normal gait. PSYCH: Normal mood, normal affect. SKIN: Warm, Dry, normal turgor. Limitations: no limitations Course Vital Signs 10/02/19 10/02/19 13:52 14:49 Temperature 98.1 F Pulse Rate 66 66 Respiratory 18 18 Rate Blood Pressure 191/93 184/80 O2 Sat by Pulse 96 98 Oximetry Medical Decision Making - Medical Decision Making Patient is a 49-year-old male presenting with a fungal infection of his lips. Exam is consistent with this. Patient was given prescription for Diflucan as well as another oral antifungal medication. Patient needs to follow-up with dermatology or PCP. Patient is agreeable with this plan of care. Case discussed with Dr. Sarmiento. Disposition Clinical Impression: Moon infection, oral Disposition: HOME SELF-CARE Condition: Stable Instructions (If sedation given, give patient instructions): Oral Candidiasis (ED) Additional Instructions: Please return to the Emergency Department if symptoms worsen or any other concerns. Use medication as prescribed. Follow-up with ENT or crossband layer if symptoms persist. Prescriptions: Fluconazole 200 mg PO DAILY #1 tab Griseofulvin, Microsize [Griseofulvin] 500 mg PO DAILY 30 Days #30 tablet Is patient prescribed a controlled substance at d/c from ED?: No Referrals: Skyler Velázquez MD [Primary Care Provider] - 1-2 days Kiana Valencia MD [STAFF PHYSICIAN] - 1-2 days
[2019-10-02 14:52] VITALS: BP 184/80
== END 2019-10-02 14:49 | disposition home or self-care (01) ==
LOC: EC 13:50
DX: B37.0 Candidal stomatitis (principal); I10 Essential (primary) hypertension; Z87.891 Personal history of nicotine dependence; Z88.5 Allergy status to narcotic agent; Z79.899 Other long term (current) drug therapy; Z86.14 Personal history of Methicillin resistant Staphylococcus aureus infection
CPT/HCPCS: 99283

== ENCOUNTER 2020-03-18 13:51 | Emergency (ER) | payer OTHER ==
[2020-03-18 13:58] VITALS: BP 155/96; PULSE 73; RESP 18; TEMP 97.9
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
== END 2020-03-18 15:32 | disposition home or self-care (01) ==
LOC: EC 13:51
DX: Z76.0 Encounter for issue of repeat prescription (principal); S22.49XD Multiple fractures of ribs, unspecified side, subsequent encounter for fracture with routine healing; B37.0 Candidal stomatitis; I10 Essential (primary) hypertension; F31.9 Bipolar disorder, unspecified; Z79.899 Other long term (current) drug therapy; F17.200 Nicotine dependence, unspecified, uncomplicated; Z88.8 Allergy status to other drugs, medicaments and biological substances; Z88.5 Allergy status to narcotic agent; Z98.890 Other specified postprocedural states; Z86.14 Personal history of Methicillin resistant Staphylococcus aureus infection; V59.9XXD Occupant (driver) (passenger) of pick-up truck or van injured in unspecified traffic accident, subsequent encounter
CPT/HCPCS: 99283

== ENCOUNTER → 2020-04-23 | Outpatient (CLI) | payer OTHER ==
--- NOTE | 2020-04-23 14:23 | CT ---
EXAMINATION TYPE: CT chest abdomen wo con DATE OF EXAM: 04/23/2020 COMPARISON: None HISTORY: Left upper abdominal pain CT DLP: 1723mGycm Unenhanced CT of the Chest, Abdomen Unenhanced CT of the chest ,abdomen is performed. The lack of intravenous contrast limits evaluation of the solid and hollow viscera. Oral contrast: None CT Chest: LUNGS: The lungs are clear and free of infiltrate or atelectasis. No pulmonary nodule or mass is det ected. No pleural effusion or CT evidence of interstitial lung disease. MEDIASTINUM: Thoracic aorta is of normal caliber. The heart is not enlarged. No evidence for media stinal mass or adenopathy. HILAR STRUCTURES: No evidence for mass. No hilar adenopathy is appreciated. OTHER: No significant abnormality. CONTRAST CT ABDOMEN AND PELVIS: LIVER/GB: No calcified gallstones. No space occupying hepatic lesion. Biliary tree is of normal ca liber. PANCREAS: No inflammation. No distinct mass. SPLEEN: No splenic enlargement. No lesion seen. ADRENALS: No nodule. No thickening. KIDNEYS/BLADDER: No hydronephrosis. No nephrolithiasis. No disctinct renal mass. BOWEL: Normal appendix. Normal bowel caliber. No inflammation. LYMPH NODES: No greater than 1cm abdominal or pelvic lymph nodes areappreciated. AORTA: No significant abnormality. OSSEOUS STRUCTURES: No significant abnormality is seen. OTHER: No significant additional abnormality is seen. IMPRESSION: 1. No significant abnormality to account for the patient's symptoms.
== END | disposition home or self-care (01) ==
LOC: RADCTMAIN 12:57
PROVIDERS: ATTEND Family Medicine
DX: R10.84 Generalized abdominal pain (principal); Z88.8 Allergy status to other drugs, medicaments and biological substances
CPT/HCPCS: 71250; 74150

== ENCOUNTER → 2020-05-16 | Outpatient (CLI) | payer OTHER ==
--- NOTE | 2020-05-17 02:25 | SFUN ---
SLEEP CENTER FOLLOW UP NOTE DATE OF SERVICE: 05/16/2020 A 49-year-old gentleman who has been followed in sleep center for treatment of obstructive sleep apnea-hypopnea syndrome. Patient continued to use his CPAP equipment every night for the whole night. No snoring with the machine. [place] Sleepiness Scale today is 3, which is absolutely normal. I checked his CPAP unit, range of the pressure 5 to 20 cm of water. Average pressure 10.9 cm of water. Usage 25 over 30 nights for more than 4 hours. Average usage is 6.4 hours per night. Leak is 10 L/minute which is acceptable. Apnea-hypopnea index reading only 1.0, which is absolutely normal. MEDICATIONS: Clonidine, Cozaar, bisoprolol, baby aspirin. PHYSICAL EXAMINATION: GENERAL: Patient in no distress. VITAL SIGNS: BP 153/92, HR 74, RR 16, height 5 feet 9-1/2 inches, weight 323, body mass index 47.0, temperature 98.5, oxygen saturation at room air 97%. HEENT: PERRLA, EOMI. Oropharynx low position of soft palate, Mallampati 3. NECK: Supple, no JVD. Thyroid is not palpable. LUNGS: Clear to percussion and to auscultation. Good air exchange. No wheezing or rhonchi. HEART: S1, S2 regular. No murmurs, gallops, or rubs. ABDOMEN: Obese. EXTREMITIES: No clubbing or cyanosis. SENIOR ACCOUNT REPRESENTATIVE: Awake, alert, and oriented X3. Cranial nerves 2 to 7 intact. There is no fasciculation or atrophy. noted. No focal deficits observed. IMPRESSION: 1. Obstructive sleep apnea-hypopnea syndrome. Patient demonstrated good compliance with treatment, benefitting from treatment. 2. Obesity. 3. Hypertension. 4. Status post tonsillectomy. 5. Allergy. 6. 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 PLAN: 1. Patient will continue to use PAP equipment every night for the whole night. 2. Sleep hygiene with regular time in bed for at least 7-1/2 to 8 hours. 3. Precautions related to driving. No driving if feeling sleepiness. 4. I will maintain all necessary prescription for PAP supplies including mask, tube, filters. 5. Watching weight. 6. No driving if feeling sleepiness. 7. Follow-up visit in 6 months or earlier if patient has any problems. 8. Patient complaining on water leak from the machine. Prescription to fix or replace unit if necessary. Thank you very much for allowing me to participate in management of your patient. Sincerely, Brendan Marshall MD, PhD, FAASM Diplomat of [employer] [facility] [place] MMNATALIE / MARK: [id number] /
== END | disposition home or self-care (01) ==
LOC: SLEEP 16:08
PROVIDERS: ATTEND Internal Medicine
DX: G47.33 Obstructive sleep apnea (adult) (pediatric) (principal); E66.9 Obesity, unspecified; I10 Essential (primary) hypertension; Z98.890 Other specified postprocedural states; Z99.89 Dependence on other enabling machines and devices; T78.40XA Allergy, unspecified, initial encounter

== ENCOUNTER 2020-08-30 19:13 | Emergency (ER) | payer OTHER ==
[2020-08-30 19:18] VITALS: BP 183/130; PULSE 100; RESP 18; TEMP 98.3
[2020-08-30] MEDS ORDERED: SODIUM CHLORIDE 0.9% 1,000 ML IV STA (19:30)
[2020-08-30] MEDS ORDERED: MORPHINE SULFATE 4 MG/ML SYRINGE IV STA (19:30)
[2020-08-30] MEDS ORDERED: ONDANSETRON 4 MG/2 ML VIAL IVP STA (19:30)
[2020-08-30 19:57] LABS: Basophils # (A) 0.1 k/uL (0-0.2); Basophils % (A) 0 %; Eosinophils # (A) 0.5 k/uL (0-0.7); Eosinophils % (A) 3 %; HCT 48.3 % (39.0-53.0); Lymphocytes # (A) 1.1 k/uL (1.0-4.8); Lymphocytes % (A) 7 %; MCHC 33.1 g/dL (31.0-37.0); MCV 93.5 fL (80.0-100.0); Mean Platelet Volume 8.4; Monocytes # (A) 0.7 k/uL (0-1.0); Monocytes % (A) 5 %; Neutrophils % (A) 84 %; Platelet Count 242 k/uL (150-450); RBC 5.17 m/uL (4.30-5.90); RDW 13.3 % (11.5-15.5); WBC 15.5 k/uL (3.8-10.6)
[2020-08-30 20:07] LABS: ALT 24 U/L (4-49); AST 22 U/L (17-59); African American GFR (CKD) >90 (>60 ml/min/1.73 sqM); Albumin 4.3 g/dL (3.5-5.0); Alkaline Phosphatase 68 U/L (38-126); Amylase 67 U/L (30-110); Anion Gap 8 mmol/L; Blood Urea Nitrogen 15 mg/dL (9-20); Calcium 9.9 mg/dL (8.4-10.2); Carbon Dioxide 27 mmol/L (22-30); Chloride 101 mmol/L (98-107); Glucose 123 mg/dL (74-99); Lipase 282 U/L (23-300); Non-African American GFR(CKD) >90 (>60 ml/min/1.73 sqM); Potassium 4.1 mmol/L (3.5-5.1); Sodium 136 mmol/L (137-145); Total Bilirubin 1.2 mg/dL (0.2-1.3); Total Protein 7.6 g/dL (6.3-8.2)
[2020-08-30 20:08] LABS: Appearance,Urine Clear (Clear); Bilirubin,Urine Negative (Negative); Blood,Urine Small (Negative); Color,Urine Yellow; Glucose,Urine (UA) Negative (Negative); Ketones,Urine Negative (Negative); Leukocyte Esterase,Urine Negative (Negative); Mucus,Urine Rare /hpf; Nitrite,Urine Negative (Negative); Protein,Urine Negative (Negative); RBC,Urine 11 /hpf (0-5); Specific Gravity,Urine 1.024 (1.001-1.035); Urobilinogen,Urine <2.0 mg/dL (<2.0); WBC,Urine 3 /hpf (0-5)
--- NOTE | 2020-08-30 20:57 | CT ---
EXAMINATION TYPE: CT abdomen pelvis w con DATE OF EXAM: 08/30/2020 COMPARISON: 04/23/2020 HISTORY: LUQ pain CT DLP: 2890 mGycm Automated exposure control for dose reduction was used. CONTRAST: Performed with IV Contrast, patient injected with 100 mL of Isovue 300. Lung bases are clear. There is no pleural effusion. Heart size is normal. There is no pericardial eff usion. Liver gallbladder spleen appear normal. Bile ducts are not dilated. There is mild fat strandin g around the tail of the pancreas. The stomach is intact. Stomach has normal size and contour. There is minimal fluid in the left anterior pararenal space. There is no adrenal mass. There are small renal cortical cysts measuring up to 1.5 cm. There is no hy dronephrosis. Delayed images show normal renal excretion. There is no retroperitoneal adenopathy. Tena endix is posterior and appears normal. Ureters are not dilated. Bladder distends smoothly. There is n o inguinal hernia. There is no free fluid in the pelvis. There is no sign of pelvic mass. There is no mesenteric edema. There is no ascites or free air. There is no bowel obstruction. Lumbar vertebra have normal alignment. There is no compression fracture. There is L5 spondylolysis wi thout spondylolisthesis. The bony pelvis is intact. Hip joints are intact. IMPRESSION: Mild inflammatory changes around the tail of the pancreas consistent with acute pancreatitis which is a change compared to old exam.
--- NOTE | 2020-08-30 20:57 | ED ---
Abdominal Pain HPI - General Chief Complaint: Abdominal Pain Stated Complaint: abdominal pain Time Seen by Provider: 08/30/20 19:23 Source: patient Mode of arrival: ambulatory Limitations: no limitations - History of Present Illness Initial Comments: 50-year-old male patient presents to the emergency department today for evaluation of left-sided abdominal pain radiating through to his left flank. Patient states that the pain started on Wednesday worsened on . 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 Patient states that he has had some intermittent nausea and indigestion. States he did try Pepto-Bismol without relief. Patient states that he is able to eat and drink. He denies history of abdominal surgery. Does have a history of hypertension and acid reflux. Denies any hematuria, dysuria, urinary frequency, urinary urgency. States he has been a little bit constipated. Denies fever or chills. Denies any hematochezia or melena. Patient denies any recent rash, cough, shortness of breath, chest pain, numbness, tingling, dizziness, weakness, hematuria, dysuria, urinary urgency, urinary frequency, headache, visual changes, or any other complaints. - Related Data Home Medications Medication Instructions Recorded Confirmed Bisoprolol-Hctz 5-6.25 mg [Ziac 1 tab PO DAILY 04/24/17 09/05/18 5-6.25 MG] Cephalexin [Keflex] 500 mg PO TID 09/05/18 09/05/18 Clonidine Unknown Dose 1 tab PO DAILY 09/05/18 09/05/18 Clotrimazole/Betameth Cream 1 applic TOPICAL BID 09/05/18 09/05/18 [Lotrisone] Ibuprofen [Motrin] 600 mg PO TID PRN 09/05/18 09/05/18 Losartan Unknown Dose 1 tab PO DAILY 09/05/18 09/05/18 Previous Rx's Medication Instructions Recorded Ibuprofen [Motrin] 600 mg PO Q6HR PRN #30 day 09/05/18 Sulfamethox-Tmp 800-160Mg [Bactrim 1 tab PO Q12HR #20 tab 09/05/18 DS 800-160 mg] Fluconazole 200 mg PO DAILY #1 tab 10/02/19 Griseofulvin, Microsize 500 mg PO DAILY 30 Days #30 tablet 10/02/19 [Griseofulvin] HYDROcodone/APAP 5-325MG [Ramah 1 tab PO Q6HR PRN #15 tab 03/18/20 5-325] Nystatin 100,000 Unit/ml Susp 5 ml PO QID #120 ml 03/18/20 [Mycostatin Oral Susp] tiZANidine HCL [Zanaflex] 4 mg PO TID #20 capsule 03/18/20 Allergies Allergy/AdvReac Type Severity Reaction Status Date / Time lisinopril Allergy Unknown Verified 08/30/20 19:18 meperidine [From Demerol] Allergy Nausea Verified 08/30/20 19:18 Review of Systems ROS Statement: Those systems with pertinent positive or pertinent negative responses have been documented in the HPI. ROS Other: All systems not noted in ROS Statement are negative. Past Medical History Past Medical History: Hypertension Additional Past Medical History / Comment(s): Bipolar "when younger" per patient. History of Any Multi-Drug Resistant Organisms: MRSA Date of last positivie culture/infection: 09/08/18 MDRO Source:: MRSA FINGER Past Surgical History: Tonsillectomy Additional Past Surgical History / Comment(s): oral surgery 3 weeks ago for removal of tooth Past Anesthesia/Blood Transfusion Reactions: No Reported Reaction Past Psychological History: Bipolar Smoking Status: Current every day smoker Past Alcohol Use History: Rare Past Drug Use History: None Reported - Past Family History Father Family Medical History: Diabetes Mellitus General Exam Limitations: no limitations General appearance: alert, in no apparent distress, other (This is a well developed, obese male patient in no acute distress. Vital signs upon presentation are temperature 98.3F, pulse 100, respirations 18, blood pressure 183/130, pulse ox 98% on room air) ENT exam: Present: normal exam, normal oropharynx, mucous membranes moist Respiratory exam: Present: normal lung sounds bilaterally. Absent: respiratory distress, wheezes, rales, rhonchi, stridor Cardiovascular Exam: Present: regular rate, normal rhythm, normal heart sounds. Absent: systolic murmur, diastolic murmur, rubs, gallop, clicks GI/Abdominal exam: Present: soft, tenderness (Left abdomen), normal bowel sounds. Absent: distended, guarding, rebound, rigid Neurological exam: Present: alert, oriented X3, CN II-XII intact Psychiatric exam: Present: normal affect, normal mood Skin exam: Present: warm, dry, intact, normal color. Absent: rash Course Vital Signs 08/30/20 19:14 Temperature 98.3 F Pulse Rate 100 Respiratory 18 Rate Blood Pressure 183/130 O2 Sat by Pulse 98 Oximetry Medical Decision Making - Medical Decision Making 50-year-old male patient presents to the emergency department today for evaluation of a left-sided abdominal pain with radiation through to the back. Physical examination did reveal midepigastric and left upper quadrant tenderness. Labs reviewed and did reveal elevated white blood cell count of 15.5 with a neutrophil count at 13.0. Remainder of labs are relatively unremarkable. CT abdomen and pelvis was obtained given her leukocytosis and duration of pain. CT did show mild inflammatory changes around the tail of the pancreas. No other abnormalities were identified. Did discuss findings and results with the patient. We did discuss pancreatitis as a cause for his symptoms. We discussed dietary modifications and pain management. He'll be discharged up with his primary care physician and GI specialist for further evaluation in 1-2 days. Return parameters discussed in detail. He verbalizes understanding and agrees with this plan. - Lab Data Result diagrams: 08/30/20 19:48 08/30/20 19:48 Lab Results 08/30/20 08/30/20 08/30/20 Range/Units 19:48 19:48 19:48 WBC 15.5 H (3.8-10.6) k/uL RBC 5.17 (4.30-5.90) m/uL Hgb 16.0 (13.0-17.5) gm/dL Hct 48.3 (39.0-53.0) % MCV 93.5 (80.0-100.0) fL MCH 31.0 (25.0-35.0) pg MCHC 33.1 (31.0-37.0) g/dL RDW 13.3 (11.5-15.5) % Plt Count 242 (150-450) k/uL Neutrophils % 84 % Lymphocytes % 7 % Monocytes % 5 % Eosinophils % 3 % Basophils % 0 % Neutrophils # 13.0 H (1.3-7.7) k/uL Lymphocytes # 1.1 (1.0-4.8) k/uL Monocytes # 0.7 (0-1.0) k/uL Eosinophils # 0.5 (0-0.7) k/uL Basophils # 0.1 (0-0.2) k/uL Sodium 136 L (137-145) mmol/L Potassium 4.1 (3.5-5.1) mmol/L Chloride 101 (98-107) mmol/L Carbon Dioxide 27 (22-30) mmol/L Anion Gap 8 mmol/L BUN 15 (9-20) mg/dL Creatinine 0.74 (0.66-1.25) mg/dL Est GFR (CKD-EPI)AfAm >90 (>60 ml/min/1.73 sqM) Est GFR (CKD-EPI)NonAf >90 (>60 ml/min/1.73 sqM) Glucose 123 H (74-99) mg/dL Plasma Lactic Acid Manuel (0.7-2.0) mmol/L Calcium 9.9 (8.4-10.2) mg/dL Total Bilirubin 1.2 (0.2-1.3) mg/dL AST 22 (17-59) U/L ALT 24 (4-49) U/L Alkaline Phosphatase 68 (38-126) U/L Total Protein 7.6 (6.3-8.2) g/dL Albumin 4.3 (3.5-5.0) g/dL Amylase 67 (30-110) U/L Lipase 282 (23-300) U/L Urine Color Yellow Urine Appearance Clear (Clear) Urine pH 6.0 (5.0-8.0) Ur Specific [place] 1.024 (1.001-1.035) Urine Protein Negative (Negative) Urine Glucose (UA) Negative (Negative) Urine Ketones Negative (Negative) Urine Blood Small H (Negative) Urine Nitrite Negative (Negative) Urine Bilirubin Negative (Negative) Urine Urobilinogen <2.0 (<2.0) mg/dL Ur Leukocyte Esterase Negative (Negative) Urine RBC 11 H (0-5) /hpf Urine WBC 3 (0-5) /hpf Urine Mucus Rare H (None) /hpf 08/30/20 Range/Units 19:48 WBC (3.8-10.6) k/uL RBC (4.30-5.90) m/uL Hgb (13.0-17.5) gm/dL Hct (39.0-53.0) % MCV (80.0-100.0) fL MCH (25.0-35.0) pg MCHC (31.0-37.0) g/dL RDW (11.5-15.5) % Plt Count (150-450) k/uL Neutrophils % % Lymphocytes % % Monocytes % % Eosinophils % % Basophils % % Neutrophils # (1.3-7.7) k/uL Lymphocytes # (1.0-4.8) k/uL Monocytes # (0-1.0) k/uL Eosinophils # (0-0.7) k/uL Basophils # (0-0.2) k/uL Sodium (137-145) mmol/L Potassium (3.5-5.1) mmol/L Chloride (98-107) mmol/L Carbon Dioxide (22-30) mmol/L Anion Gap mmol/L BUN (9-20) mg/dL Creatinine (0.66-1.25) mg/dL Est GFR (CKD-EPI)AfAm (>60 ml/min/1.73 sqM) Est GFR (CKD-EPI)NonAf (>60 ml/min/1.73 sqM) Glucose (74-99) mg/dL Plasma Lactic Acid Manuel 1.3 (0.7-2.0) mmol/L Calcium (8.4-10.2) mg/dL Total Bilirubin (0.2-1.3) mg/dL AST (17-59) U/L ALT (4-49) U/L Alkaline Phosphatase (38-126) U/L Total Protein (6.3-8.2) g/dL Albumin (3.5-5.0) g/dL Amylase (30-110) U/L Lipase (23-300) U/L Urine Color Urine Appearance (Clear) Urine pH (5.0-8.0) Ur Specific [place] (1.001-1.035) Urine Protein (Negative) Urine Glucose (UA) (Negative) Urine Ketones (Negative) Urine Blood (Negative) Urine Nitrite (Negative) Urine Bilirubin (Negative) Urine Urobilinogen (<2.0) mg/dL Ur Leukocyte Esterase (Negative) Urine RBC (0-5) /hpf Urine WBC (0-5) /hpf Urine Mucus (None) /hpf - Radiology Data Radiology results: report reviewed, image reviewed CT abdomen and pelvis with contrast is obtained. Report reviewed in its entirety. Impression by Dr. Talavera shows mild inflammatory changes around the tail of the pancreas consistent with acute pancreatitis which is a change compared to old exam. Disposition Clinical Impression: Pancreatitis, Abdominal pain Disposition: HOME SELF-CARE Condition: Good Instructions (If sedation given, give patient instructions): Pancreatitis (ED), Low Fat Diet (ED), Abdominal Pain (ED) Additional Instructions: Increase clear liquids. Avoid fatty foods. Follow up with your primary care physician for recheck in 1-2 days. Consider follow up with GI specalist. Return to the emergency department for any new, worsening, or concerning symptoms. Is patient prescribed a controlled substance at d/c from ED?: No Referrals: Skyler Velázquez MD [Primary Care Provider] - 1-2 days Eden Morales MD [STAFF PHYSICIAN] - 1-2 days Time of Disposition: 21:23
[2020-08-30] MEDS ORDERED: ACET/COD 300 MG/30 MG STARTER PACK 6 TAB BTL PO STA (21:23)
== END 2020-08-30 21:49 | disposition home or self-care (01) ==
LOC: EC 19:13
DX: K85.90 Acute pancreatitis without necrosis or infection, unspecified (principal); I10 Essential (primary) hypertension; F17.200 Nicotine dependence, unspecified, uncomplicated; Z79.899 Other long term (current) drug therapy; Z88.5 Allergy status to narcotic agent; Z88.8 Allergy status to other drugs, medicaments and biological substances
CPT/HCPCS: 36415; 80053; 82150; 83605; 83690; 85025; 81001; 74177; 99284; 96374; 96375; 96361; J2270; J2405; Q9967

== ENCOUNTER → 2022-04-30 | Outpatient (CLI) | payer OTHER ==
--- NOTE | 2022-05-01 03:28 | MR ---
EXAMINATION TYPE: MR lumbar spine wo con DATE OF EXAM: 04/30/2022 COMPARISON: None HISTORY: Extreme low back pain that radiates down right leg, unable to walk without cane. Multiplanar multisequence imaging of the lumbar spine with no contrast. The lumbar vertebra show normal alignment. There is posterior disc bulging at L5-S1. There is degener ative disc space narrowing from L3 to S1 with decreased signal in the disks. There is no paraspinal mass. No evidence of focal bone destruction. There is developmentally adequate spinal canal and no significant spinal stenosis. The upper sacroiliac joints appear intact. IMPRESSION: Degenerative disc signal changes from L3 to S1. Small posterior disc herniation at L5-S1 but no signi ficant spinal stenosis. No fracture
== END | disposition home or self-care (01) ==
LOC: RADMRIMAIN 13:00
PROVIDERS: ATTEND Orthopaedic Surgery
DX: M51.27 Other intervertebral disc displacement, lumbosacral region (principal)
CPT/HCPCS: 72148

== ENCOUNTER → 2022-06-08 | Outpatient (CLI) | payer OTHER ==
[2022-06-08 14:02] VITALS: BP 133/94; PULSE 53; RESP 18; TEMP 98.2
--- NOTE | 2022-06-08 14:22 | P.PAINPG ---
PQRS Measure Charge Sheet Comment: HISTORY OF PRESENT ILLNESS: 51 yr old male as a referral from [facility] presents today w severe and chronic LBP secondary to for evaluation. Pt states his pain level is currently at 8/10 in intensity, constant, achy in character and localized in the R lower aspect of his lumbar spine. Pain radiates towards the RLE, specifically the R great toe. Pain is provoked with standing/ walking for periods of 15 min or more. Pain is alleviated w medications (Tyl, Ibu, muscle relaxer, lidoderm), PT x 6 weeks in May 2022, chiropractic treatments as needed which didn't alleviate pain, home stretching regimen, repositioning and rest. PMH: HTN, Bipolar Disorder PSH: Tonsillectomy, Teeth Extraction SH: Daily Tobacco use, Rare ETOH use, +Cannabis use. 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 FH: DM Type II All: See list Meds: See list REVIEW OF ORGAN SYSTEMS: CONSTITUTIONAL: No fevers or chills. No recent weight loss. NEUROLOGICAL: + numbness and tingling along the distal extremities. No seizure disorders or headaches. MUSCULOSKELETAL: + pain PSYCHIATRIC: Denies current depression or suicidal thoughts. Physical Examinations : Constitutional : Cooperative , not in acute distress . Neurologic : Cranial nerve II to XII intact. No focal neurological deficits. Psychiatric : alert & oriented x 3. Matching mood & appropriate affect. Judgment & insight intact. Musculoskeletal : Cervical Spine Motor strength in the deltoid and biceps: Normal right side. Normal Left side Motor strength biceps and the wrist extensors: Normal right side . Normal left side Motor strength in the triceps muscle: Normal right side. Normal left side Deep tendon reflexes: Normal at the biceps. Normal at Brachioradialis. Normal at triceps Vertebral body tenderness to deep palpation over Cervical facet loading test: positive bilaterally Spurling test: positive bilaterally Neck distraction test: positive bilaterally Juliana sign: positive bilaterally Lumbar spine Motor strength lower extremities ,thigh and legs 5/5 Right side , 5/5 Left side Deep tendon reflexes : Normal Knee Jerk. Normal Ankle Jerk Vertebral body tenderness over L5 Lumbar facet Loading Test: positive Right / positive Left Range of motion of the lumbar spine Flexion 30 degrees, extension 10 degrees Straight Leg Raise test: Left/ Right positive at degree Corrine test: positive right / positive left. Severe tenderness over the Sacroiliac joint on the Right / Left sides Gaenslen test: positive bilaterally Seated flexion test: positive bilate rally. Sacral spine : Severe tenderness over the Sacroiliac joint: right side / left side Range of motion: Flexion of the lumbar spine <60 degrees Range of motion: Extension of the lumbar spine <20 degrees Gaenslen's Test positive Alfonso's Test positive Corrine test: positive right side / left side Thigh Thrust Test Sacral Thrust Test Imaging: MRI without contrast of the lumbar spine from 04/30/22 reviewed Assessment/ Plan : Lumbar DDD Recommendation of LESI L5-S1. May need a series of injections, up to 3 within a 6 mo period, for optimal pain relief. Risks, benefits of procedure discussed and patient verbalized understanding. Admits to aspirin or anti- coagulant use and denies medical history of diabetes. Protocol for discontinuation/ continuation of medications olivia procedure discussed. All questions answered. I have spent greater than 30 minutes on patient care today. Dr Mcgee was available by phone for the evaluation of this patient. The time was used to review the medical records including relevant urine studies and Prescription history (MAPs), review of the available imaging, evaluation and examination of the patient, coordination of care with the medical staff and if applicable referring physicians, as well as creation of the medical record PQRS Narrative: Smoking Status Current every day smoker Home Medications: Ambulatory Orders Bisoprolol-Hctz 5-6.25 mg [Ziac 5-6.25 MG] 1 tab PO DAILY 04/24/17 Clonidine Unknown Dose 1 tab PO DAILY 09/05/18 Clotrimazole/Betameth Cream [Lotrisone] 1 applic TOPICAL BID 09/05/18 Ibuprofen [Motrin] 600 mg PO Q6HR PRN #30 day 09/05/18 Ibuprofen [Motrin] 600 mg PO TID PRN 09/05/18 Losartan Unknown Dose 1 tab PO DAILY 09/05/18 Sulfamethox-Tmp 800-160Mg [Bactrim DS 800-160 mg] 1 tab PO Q12HR #20 tab 09/05/18 cephALEXin [Keflex] 500 mg PO TID 09/05/18 Fluconazole 200 mg PO DAILY #1 tab 10/02/19 Griseofulvin, Microsize [Griseofulvin] 500 mg PO DAILY 30 Days #30 tablet 10/02/19 HYDROcodone/APAP 5-325MG [Ford 5-325] 1 tab PO Q6HR PRN #15 tab 03/18/20 Nystatin 100,000 Unit/ml Susp [Mycostatin Oral Susp] 5 ml PO QID #120 ml 03/18/20 tiZANidine HCL [Zanaflex] 4 mg PO TID #20 capsule 03/18/20 Controlled Substance Measures - Controlled Substance Measures Is patient prescribed a controlled substance at discharge?: No
== END ==
LOC: PNWHC3 13:20
PROVIDERS: ATTEND Specialist
DX: M51.36 Other intervertebral disc degeneration, lumbar region (principal); M51.26 Other intervertebral disc displacement, lumbar region; I10 Essential (primary) hypertension; F31.9 Bipolar disorder, unspecified; F17.200 Nicotine dependence, unspecified, uncomplicated; Z88.8 Allergy status to other drugs, medicaments and biological substances
CPT/HCPCS: 99211

== ENCOUNTER 2022-07-28 12:54 | Day surgery (SDC) | payer OTHER ==
[2022-07-27 13:42] VITALS: BMI 43.0
[~2022-07-28 12:54] MED LIST: LACTATED RINGERS 1,000 ML IV SCH; LIDOCAINE 1% (10MG/ML) FOR IV START INTRADERMA PRN
[2022-07-28 13:28] VITALS: TEMP 96.7
[2022-07-28] MEDS ORDERED: MIDAZOLAM 2 MG/2 ML VIAL ONE (14:02)
[2022-07-28] MEDS ORDERED: fentaNYL (PF) 50 MCG/ML 2 ML AMP ONE (14:02)
[2022-07-28] MEDS ORDERED: methylPREDNISolone ACETATE 80 MG/ML 1 ML VIAL ONE (14:02)
[2022-07-28] MEDS ORDERED: IOPAMIDOL M200 10 ML VIAL ONE (14:02)
--- NOTE | 2022-07-28 14:13 | P.PCN ---
Date of Procedure: 07/28/22 Procedure(s) Performed: PREOPERATIVE DIAGNOSIS: 1- Lumbar herniated Disc Diseases 2-Lumbar spondylosis with Facet arthropathy without myelopathy. POSTOPERATIVE DIAGNOSIS: Same as preop diagnosis. PROCEDURE 1. Lumbar epidural steroid injection under fluoroscopic guidance at the L5-S1 level. (Fluoroscopy imaging was available in radiology department) 2. Lumbar epidurogram. ANESTHESIA: moderate sedation with intravenous Versed 2 mg ,and fentanyle 100 Mcg Sedation start time : 1405 Sedation end time : 1411 EBL: Minimal PROCEDURE INDICATION: The patient with low back pain and radiculitis symptoms unresponsive to conservative treatment. Fluoroscopy was used to optimize visualization of the needle placement and to maximize safety. PROCEDURE DESCRIPTION / TECHNIQUE: The patient was seen and identified in the preoperative area. Risks, benefits, complications including but not limited to infections ,bleeding ,allergic reaction to the medications ,nerve damage and not complete pain releife , and alternatives were discussed with the patient. The patient agreed to proceed with the procedure and signed the consent. IV was started, and vital signs were stable. Patient was taken to the OR and time out was completed. The patient was placed in the prone position on procedure table and a pillow was placed under the abdomen to reduce lumbar lordosis. The lumbosacral area was prepped and draped in the usual sterile fashion.ere closely monitored during the procedure. Conscious sedation was used during the procedure to decrease patients anxiety. Vital signs was monitered during the entire procedure. Using anterior-posterior fluoroscopy, the L5-S1 interlaminar space was identified and the skin over this site was marked and then infiltrated with 1% lidocaine subcutaneously. Subsequently, a 20-gauge Tuohy epidural needle was inserted and advanced toward the epidural space using the ``Loss of resistance technique and guided by AP and lateral fluoroscopy. The correct needle position in the epidural space was verified with the injection of 2 mL of the water soluble contrast dye Isovue 200 contrast and observing an excellent epidurogram with the epidural spread of the dye, after negative aspiration for blood and CSF and in the absence of paresthesias. Again after negative aspiration, a 6 ml mixture containing 80 mg of Depo-medrol ( Preservetive Free ), and 2 ml of preservative free Normal Saline, and 2 ml of preservative free lidocaine 1% solution was injected and a washout of epidurogram was seen. Needle was withdrawn intact, skin was cleansed, and bandages were applied. COMPLICATIONS: None DISPOSITION / PLANS: The patient was placed in a supine position and transferred to the recovery area in a stable condition for observation. There was no evidence of lower extremity motor or sensory deficit after the procedure. Patient was discharged from the recovery room after meeting discharge criteria. Home discharge instructions were given to the patient by the staff. The patient was reexamined prior to discharge. The patient will schedule a follow up in the clinic in 2-4 weeks.
[2022-07-28 14:23] VITALS: RESP 20
[2022-07-28 14:45] VITALS: BP 112/70; PULSE 56
[2022-07-28] MEDS ORDERED: IV FLUID CONTINUATION 800 ML IV ONE (14:45)
--- NOTE | 2022-07-28 15:56 | FL ---
Fluoroscopy HISTORY: Pain 2 seconds fluoroscopy time supplied to the referring clinician. 1 intraoperative C-arm images docume nt the procedure. See dictated report from anesthesia.
== END 2022-07-28 15:24 | disposition home or self-care (01) ==
LOC: ORPAIN 12:54
PROVIDERS: ATTEND Specialist
DX: M51.16 Intervertebral disc disorders with radiculopathy, lumbar region (principal); M47.26 Other spondylosis with radiculopathy, lumbar region; Z88.0 Allergy status to penicillin; Z88.8 Allergy status to other drugs, medicaments and biological substances
CPT/HCPCS: 62323; J2250; J1040; J3010; Q9966

== ENCOUNTER → 2022-08-13 | Outpatient (CLI) | payer OTHER ==
[2022-08-13 13:10] VITALS: BP 132/77; PULSE 55; RESP 16; TEMP 97.8
--- NOTE | 2022-08-13 14:59 | P.PAINPG ---
PQRS Measure Charge Sheet Comment: A 52 yr old male with a history of severe and chronic low back pain secondary to lumbar degenerative disc diseases and lumbar spondylosis with facet arthropathy without myelopathy presents today for evaluation s/p SULMA L5-S1. Pt states he experienced 60% pain relief x 1 day s/p procedure. Pain level is curr ently at 7/10 in intensity, constant, localized in the lower lumbar spine, achy in character w shooting towards RLE. Pain is provoked by sitting/standing/walking for periods of 30 min or more. Pain is alleviated with PT in May 2022, heat, +Cannabis, use of a cane for ambulation, medications (Zanaflex, Naproxen), repositioning and rest. Interventional pain procedures completed include SULMA L5-S1 Patient is currently on Naproxen, Zanaflex Patient denies any side effects of the medication(s), denies excessive drowsiness or sleepiness, denies suicidal ideation and reports that the current pain medication is helping to control the pain and improve activities of daily living. Patient denies any motor or sensory deficits. Patient denies any fever or night sweats, denies any change in the bowel movements or urination. Physical Examination: -Constitutional: Cooperative. Not in acute distress . - Neurologic: Cranial nerve II to XII intact. No focal neurological deficits. - Psychatric: Alert & oriented x 3. Matching mood & appropriate affect. Judgment and insight intact. - Musculoskeletal: Cervical spine: Muscle bulk/ tone/ strength in the bilateral upper extremities normal Vertebral body tenderness to palpation over Spurling test positive Distraction test positive Facet loading test positive Thoracic spine Muscle bulk / tone/ strength in the bilateral paraspinal muscles normal Vertebral body tender to palpation over Facet loading test positive Lumbar spine: Motor bulk/ tone/ strength lower extremities , thigh and legs : 5/5 Deep tendon reflexes : Normal Knee Jerk. Normal Ankle Jerk . Vertebral body tenderness to palpation over Lumbar Facet Loading Test positive over R L4-L5, L5-S1 with jump reflex Straight Leg Raise: positive at 30 degrees right side/ left side Gaenslen's Test positive Sacral spine : Severe tenderness over the Sacroiliac joint: right side / left side Range of motion: Flexion of the lumbar spine <60 degrees Range of motion: Extension of the lumbar spine <20 degrees Gaenslen's Test positive Alfonso's Test positive Corrine test: positive right side / left side Thigh Thrust Test Sacral Thrust Test Assessment and plan: Chronic low back pain secondary to lumbar degenerative disc disease , lumbar spondylosis with facet arthropathy without myelopathy Recommendation of R MBB L4-L5, L5-S1 #1. May need a series of injections, up until RFA, for optimal pain relief. Risks, benefits of procedure discussed and pt verbalized understanding. Admits to anticoagulant use or medical history of diabetes. Protocol for discontinuation/continuation of medications discussed. All patient questions answered I have spent less than 30 minutes on patient care today. Dr Mcgee was available by phone for the evaluation of this patient. The time was used to re view the medical records including relevant urine studies and Prescription history (MAPs), review of the available imaging, evaluation and examination of the patient, coordination of care with the medical staff and if applicable referring physicians, as well as creation of the medical record - Pain Location Lower Back Non-Pharmacological Interventions: Heat, Inactivity, Physical Therapy, Sitting Pharmacological Interventions: Epidural, PRN Medication PQRS Narrative: Smoking Status Current every day smoker Hx Alcohol Use (MH) No Home Medications: Ambulatory Orders Aspirin EC [Ecotrin Low Dose] 81 mg PO DAILY 07/27/22 Bisoprolol/Hydrochlorothiazide [Bisoprolol/Hydrochlorothiazide 10-6.25 mg] 1 each PO HS 07/27/22 [place] Carbonate 900 mg PO HS 07/27/22 Losartan Potassium [Cozaar] 100 mg PO HS 07/27/22 QUEtiapine FUMARATE [SEROquel] 200 mg PO HS 07/27/22 QUEtiapine [SEROquel] 25 - 50 mg PO HS PRN 07/27/22 Sertraline [Zoloft] 100 mg PO BID 07/27/22 cloNIDine HCL [Catapres] 0.6 mg PO HS 07/27/22 tiZANidine HCL [Zanaflex] 4 mg PO TID PRN 07/27/22 Controlled Substance Measures - Controlled Substance Measures Is patient prescribed a controlled substance at discharge?: No
== END ==
LOC: PNWHC3 12:52
PROVIDERS: ATTEND Specialist
DX: M51.36 Other intervertebral disc degeneration, lumbar region (principal); M47.816 Spondylosis without myelopathy or radiculopathy, lumbar region; G89.29 Other chronic pain; F17.200 Nicotine dependence, unspecified, uncomplicated; Z88.8 Allergy status to other drugs, medicaments and biological substances
CPT/HCPCS: 99211

== ENCOUNTER 2022-09-18 10:09 | Day surgery (SDC) | payer OTHER ==
[2022-09-18 10:33] VITALS: RESP 20; TEMP 96.9
[2022-09-18] MEDS ORDERED: methylPREDNISolone ACETATE 40 MG/ML 1 ML VIAL ONE (10:40)
[2022-09-18] MEDS ORDERED: MIDAZOLAM 2 MG/2 ML VIAL ONE (10:40)
[2022-09-18] MEDS ORDERED: fentaNYL (PF) 50 MCG/ML 2 ML AMP ONE (10:40)
[2022-09-18] MEDS ORDERED: ROPIVACAINE 5 MG/ML 20 ML AMPULE ONE (10:40)
--- NOTE | 2022-09-18 10:55 | P.PCN ---
Date of Procedure: 09/18/22 Procedure(s) Performed: PREOPERATIVE DIAGNOSIS : 1- Lumbar spondylosis with Facet Arthropathy without myelopathy . 2- Lumber degenerative disc disease POSTOPERATIVE DIAGNOSIS: 1- Lumbar spondylosis with Facet Arthropathy without myelopathy . 2- Lumber degenerative disc disease PROCEDURE: Diagnostic Right L3 , L4 , and L5 medial branch block under fluoroscopy guidance(fluoroscopy images available in the radiology Department ) ( To target the facet joint between Right L4-5 , and L5-S1 )# 1st ANESTHESIA:, Monitored anesthesia care as per anesthesia department. EBL: Minimal COMPLICATION: None PROCEDURE INDICATION: Chronic low back pain secondary to Facet arthropathy unresponsive to conservative treatment. PROCEDURE DESCRIPTION: the patient was seen and identified in the preop holding area , risks and benefits and possible complications of the procedure and alternative were discussed with the patient, and the patient agreed to proceed with the procedure and signed the consent and vital signs monitored during the procedure and fluoroscopy was used to maximize the benefit and accuracy of the needle placement, and sedation was given to decrease patient anxiety, patient was taken to the procedure room and placed in prone position vital signs monitored in the back prepped with chlorhexidine X3 then under strict sterile technique using a right oblique fluoroscopy ,the junction of the transverse process and the superior articulating process of the right L3 , L4 , and L5 vertebra which corresponding to the fluoroscopy image of the eye of the Willie dog on the block side for the medial branches and subsequently , after local infiltration of skin and subcu tissuies with Ropivacaine 0.5 % , one mL at each level ,then 22-gauge 5 inches long Quincke-type needles , 3 needle was used , each one of them placed at the junction of the base of the transverse process and the superior articular process at the appropriate level, and the needle was advanced until the periosteum contacted, needle placement confirmed with AP oblique and lateral view and after appropriate needle placement confirmed, and after negative aspiration for heme and CSF and there wa s no paresthesia 1-1/2 mL of Ropivacaine 0.5% mixed with 40 mg Depo-Medrol , then half mL injected at each level after negative aspiration the needle subsequently removed . At the end of the procedure and the needles removed and a bandage applied after the skin was cleaned the cleaning solution patient taken to recovery room in stable condition and monitors in the recovery room for 20-30 minutes and discharged home in stable condition after discharge criteria met and patient will follow up with the pain clinic in 2-4 weeks
[2022-09-18] MEDS ORDERED: IV FLUID CONTINUATION 1,000 ML IV ONE (10:58)
--- NOTE | 2022-09-18 11:00 | FL ---
Intraoperative/procedural fluoroscopic services were provided. Total fluoroscopy time is 5 seconds wi th a total of 3 submitted images to PACS. Please see the operative/procedural note for further detail s.
[2022-09-18 11:18] VITALS: BP 123/75; PULSE 57
== END 2022-09-18 11:45 | disposition home or self-care (01) ==
LOC: ORPAIN 10:09
PROVIDERS: ATTEND Specialist
DX: M51.36 Other intervertebral disc degeneration, lumbar region (principal); M47.816 Spondylosis without myelopathy or radiculopathy, lumbar region; I10 Essential (primary) hypertension; G47.33 Obstructive sleep apnea (adult) (pediatric); F17.200 Nicotine dependence, unspecified, uncomplicated; Z88.5 Allergy status to narcotic agent; Z88.8 Allergy status to other drugs, medicaments and biological substances; Z79.899 Other long term (current) drug therapy
CPT/HCPCS: 64493; 64494; J2250; J1030; J3010; J2795

== ENCOUNTER → 2022-10-05 | Outpatient (CLI) | payer OTHER ==
[2022-10-05 13:39] VITALS: BP 139/92; PULSE 52; RESP 16; TEMP 98.6
--- NOTE | 2022-10-05 15:38 | P.PAINPG ---
PQRS Measure Charge Sheet Comment: A 52 yr old male with a history of severe and chronic low back pain secondary to lumbar DDD and spondylosis with facet arthropathy without myelopathy presents today for evaluation s/p facet block of the medial branches L3-L5 #1. Pt states he experienced 0% pain relief s/p procedure. Pain level is currently at 8/10 in intensity, constant, localized in the center of the lumbar spine, achy in character w shooting towards the BLEs. Pain is provoked by over activity. Pain is alleviated with use of cane for ambulation, PT May 2022 which was ineffective, +THC products, medications (Naproxen), repositoning and rest. Interventional pain procedures completed include BL MBB L3-L5 x1 Patient is currently on Naproxen Patient denies any side effects of the medication(s), denies excessive drowsiness or sleepiness, denies suicidal ideation and reports that the current pain medication is helping to control the pain and improve activities of daily living. Patient denies any motor or sensory deficits. Patient denies any fever or night sweats, denies any change in the bowel movements or urination. Physical Examination: -Constitutional: Cooperative. Not in acute distress . - Neurologic: Cranial nerve II to XII intact. No focal neurological deficits. - Psychatric: Alert & oriented x 3. Matching mood & appropriate affect. Judgment and insight intact. - Musculoskeletal: Cervical spine: Muscle bulk/ tone/ strength in the bilateral upper extremities normal Vertebral body tenderness to palpation over Spurling test positive Distraction test positive Facet loading test positive Thoracic spine Muscle bulk / tone/ strength in the bilateral paraspinal muscles normal Vertebral body tender to palpation over Facet loading test positive Lumbar spine: Motor bulk/ tone/ strength lower extremities , thigh and legs : 5/5 Deep tendon reflexes : Normal Knee Jerk. Normal Ankle Jerk . Vertebral body tenderness to palpation over Lumbar Facet Loading Test positive Straight Leg Raise: positive at 30 degrees right side/ left side Gaenslen's Test positive Sacral spine : Severe tenderness over the Sacroiliac joint: right side / left side Range of motion: Flexion of the lumbar spine <60 degrees Range of motion: Extension of the lumbar spine <20 degrees Gaenslen's Test positive Corrine test: positive right side / left side Thigh Thrust Test Sacral Thrust Test Assessment and plan: Chronic low back pain secondary to lumbar degenerative disc disease, spondylosis with facet arthropathy without myelopathy Recommendation of IPG trial. Pt did not have sufficient pain relief w SULMA or MBBs. Reviewing video and provided w script for behavioral health eval re: IPG placement. Risks, benefits of procedure discussed and pt verbalized understanding. He may return to our clinic after behavioral health eval in 4 wks. All patient questions answered I have spent less than 30 minutes on patient care today. Dr Mcgee was available by phone for the evaluation of this patient. The time was used to review the medical records including relevant urine studies and Prescription history (MAPs), review of the available imaging, evaluation and examination of the patient, coordination of care with the medical staff and if applicable referring physicians, as well as creation of the medical record PQRS Narrative: Smoking Status Current every day smoker Hx Alcohol Use (MH) No Home Medications: Ambulatory Orders Aspirin EC [Ecotrin Low Dose] 81 mg PO DAILY 07/27/22 Bisoprolol/Hydrochlorothiazide [Bisoprolol/Hydrochlorothiazide 10-6.25 mg] 1 each PO HS 07/27/22 [place] Carbonate 900 mg PO HS 07/27/22 Losartan Potassium [Cozaar] 100 mg PO HS 07/27/22 QUEtiapine FUMARATE [SEROquel] 200 mg PO HS 07/27/22 QUEtiapine [SEROquel] 25 - 50 mg PO HS PRN 07/27/22 Sertraline [Zoloft] 100 mg PO BID 07/27/22 cloNIDine HCL [Catapres] 0.6 mg PO HS 07/27/22 tiZANidine HCL [Zanaflex] 4 mg PO TID PRN 07/27/22 Controlled Substance Measures - Controlled Substance Measures Is patient prescribed a controlled substance at discharge?: No
== END ==
LOC: PNWHC3 12:43
PROVIDERS: ATTEND Specialist
DX: M47.816 Spondylosis without myelopathy or radiculopathy, lumbar region (principal); M51.36 Other intervertebral disc degeneration, lumbar region; G89.29 Other chronic pain; Z88.8 Allergy status to other drugs, medicaments and biological substances; F17.200 Nicotine dependence, unspecified, uncomplicated
CPT/HCPCS: 99211

== ENCOUNTER → 2023-04-08 | Outpatient (CLI) | payer OTHER ==
[2023-04-09 02:55] LABS: Blood Urea Nitrogen 16.2 mg/dL (9.0-27.0); Chol/HDL Ratio 3.35 Ratio; Glucose 106 mg/dL (70-110); LDL Cholesterol,Calculated 64.5 mg/dL (0.0-131.0); T4, Free (Free Thyroxine) 1.04 ng/dL (0.80-1.80)
== END | disposition home or self-care (01) ==
LOC: LABWHC1 11:58
PROVIDERS: ATTEND Psychiatry & Neurology Psychiatry
DX: F33.2 Major depressive disorder, recurrent severe without psychotic features (principal); Z79.899 Other long term (current) drug therapy
CPT/HCPCS: 36415; 80061; 80178; 82565; 82947; 83036; 84439; 84443; 84520

== ENCOUNTER 2023-05-15 00:15 | Emergency (ER) | payer OTHER ==
[2023-05-15 00:21] VITALS: RESP 18; TEMP 98.2
[2023-05-15 01:54] LABS: Basophils % (A) 0 %; Eosinophils # (A) 0.3 k/uL (0-0.7); Eosinophils % (A) 4 %; HCT 42.8 % (39.0-53.0); HGB 14.2 gm/dL (13.0-17.5); Lymphocytes # (A) 1.5 k/uL (1.0-4.8); Lymphocytes % (A) 18 %; MCH 31.3 pg (25.0-35.0); MCHC 33.1 g/dL (31.0-37.0); MCV 94.4 fL (80.0-100.0); Monocytes # (A) 0.4 k/uL (0-1.0); Monocytes % (A) 6 %; Neutrophils # (A) 5.7 k/uL (1.3-7.7); Neutrophils % (A) 71 %; Platelet Count 160 k/uL (150-450); RBC 4.53 m/uL (4.30-5.90); RDW 13.1 % (11.5-15.5)
[2023-05-15 02:02] LABS: ALT 29 U/L (4-49); AST 28 U/L (17-59); African American GFR (CKD) >90 (>60 ml/min/1.73 sqM); Albumin 3.9 g/dL (3.5-5.0); Alkaline Phosphatase 57 U/L (38-126); Anion Gap 6 mmol/L; Blood Urea Nitrogen 11 mg/dL (9-20); Calcium 9.1 mg/dL (8.4-10.2); Carbon Dioxide 29 mmol/L (22-30); Chloride 104 mmol/L (98-107); Glucose 117 mg/dL (74-99); Non-African American GFR(CKD) >90 (>60 ml/min/1.73 sqM); Potassium 3.8 mmol/L (3.5-5.1); Sodium 139 mmol/L (137-145); Total Bilirubin 1.1 mg/dL (0.2-1.3); Total Protein 6.8 g/dL (6.3-8.2)
[2023-05-15 02:10] LABS: NT-Pro-B-Type Natriuretic Pept 262 pg/mL
--- NOTE | 2023-05-15 04:45 | US ---
EXAMINATION TYPE: US venous doppler duplex LE DATE OF EXAM: 05/15/2023 1:32 AM COMPARISON: NONE CLINICAL INDICATION: Male, 52 years old with history of swelling; SIDE PERFORMED: Bilateral TECHNIQUE: The lower extremity deep venous system is examined utilizing real time linear array sonog karie with graded compression, doppler sonography and color-flow sonography. VESSELS IMAGED: Common Femoral Vein Deep Femoral Vein Greater Saphenous Vein * Femoral Vein Popliteal Vein Small Saphenous Vein * Proximal Calf Veins (* superficial vessels) Right Leg: Appears negative for DVT Left Leg: Appears negative for DVT IMPRESSION: Grayscale, color doppler, spectral doppler imaging performed of the deep veins of the lo wer extremities. There is normal flow, compressibility, vascular waveforms.
--- NOTE | 2023-05-15 04:52 | ED ---
Extremity Problem HPI - General Chief complaint: Extremity Problem,Nontraumatic Stated complaint: Lower extremity swelling Time Seen by Provider: 05/15/23 00:33 Source: patient Mode of arrival: ambulatory Limitations: no limitations - History of Present Illness Initial comments: 52-year-old male presenting with chief complaint of bilateral lower extremity edema. States that this has been worsening for weeks. He states that he came" because people were telling me that I should". Patient states that he is homeless and lives inside his car. He states that he has been having some tingling on the left side of his body from the top of his head to the bottom of his feet. No weakness. No injury or trauma. No chest pain or difficulty breathing. No URI like symptoms. No abdominal pain, nausea, vomiting, diarrhea. No fevers or chills. No palpitations. - Related Data Home Medications Medication Instructions Recorded Confirmed Aspirin EC [Ecotrin Low Dose] 81 mg PO DAILY 07/27/22 10/05/22 Bisoprolol/Hydrochlorothiazide 1 each PO HS 07/27/22 10/05/22 [Bisoprolol/Hydrochlorothiazide 10-6.25 mg] [place] Carbonate 900 mg PO HS 07/27/22 10/05/22 Losartan Potassium [Cozaar] 100 mg PO HS 07/27/22 10/05/22 QUEtiapine FUMARATE [SEROquel] 200 mg PO HS 07/27/22 10/05/22 QUEtiapine [SEROquel] 25 - 50 mg PO HS PRN 07/27/22 10/05/22 Sertraline [Zoloft] 100 mg PO BID 07/27/22 10/05/22 cloNIDine HCL [Catapres] 0.6 mg PO HS 07/27/22 10/05/22 tiZANidine HCL [Zanaflex] 4 mg PO TID PRN 07/27/22 10/05/22 Allergies Allergy/AdvReac Type Severity Reaction Status Date / Time lisinopril Allergy Unknown Verified 05/15/23 00:21 meperidine [From Demerol] Allergy Nausea Verified 05/15/23 00:21 Review of Systems ROS Statement: Those systems with pertinent positive or pertinent negative responses have been documented in the HPI. ROS Other: All systems not noted in ROS Statement are negative. Past Medical History Past Medical History: Hypertension, Sleep Apnea/CPAP/BIPAP Additional Past Medical History / Comment(s): CPAP MACHINE USES OCCASIONAL History of Any Multi-Drug Resistant Organisms: MRSA Date of last positivie culture/infection: 09/08/18 MDRO Source:: MRSA FINGER Past Surgical History: Tonsillectomy Additional Past Surgical History / Comment(s): oral surgery for removal of tooth, RIGHT HAND SURGERY- FOR INFECTION Past Anesthesia/Blood Transfusion Reactions: No Reported Reaction Past Psychological History: Anxiety, Bipolar, Panic Disorder, PTSD Smoking Status: Former smoker Past Alcohol Use History: None Reported Past Drug Use History: Marijuana - Past Family History Father Family Medical History: Cancer, Diabetes Mellitus General Exam Limitations: no limitations General appearance: alert, in no apparent distress Head exam: Present: atraumatic, normocephalic, normal inspection Eye exam: Present: normal appearance Neck exam: Present: normal inspection, full ROM Respiratory exam: Present: normal lung sounds bilaterally. Absent: respiratory distress, wheezes, rales, rhonchi, stridor Cardiovascular Exam: Present: regular rate, normal rhythm, normal heart sounds. Absent: systolic murmur, diastolic murmur, rubs, gallop, clicks Extremities exam: Present: pedal edema Neurological exam: Present: alert, oriented X3, CN II-XII intact Psychiatric exam: Present: normal affect, normal mood Skin exam: Present: warm, dry, intact, normal color. Absent: rash Course Vital Signs 05/15/23 05/15/23 00:16 05:30 Temperature 98.2 F Pulse Rate 55 L 58 L Respiratory 18 18 Rate Blood Pressure 196/104 175/84 O2 Sat by Pulse 97 97 Oximetry Medical Decision Making - Medical Decision Making Was pt. sent in by a medical professional or institution (, PA, GEOPHYSICAL SUPPORT SPECIALIST, urgent ca re, hospital, or detention...) When possible be specific @ -No Did you speak to anyone other than the patient for history (EMS, parent, family, police, friend...)? What history was obtained from this source @ -No Did you review nursing and triage notes (agree or disagree)? Why? @ -I reviewed and agree with nursing and triage notes Were old charts reviewed (outside hosp., previous admission, EMS record, old EKG, old radiological studies, urgent care reports/EKG's, detention records)? Report findings @ -No old charts were reviewed Differential Diagnosis (chest pain, altered mental status, abdominal pain women, abdominal pain men, vaginal bleeding, weakness, fever, dyspnea, syncope, headache, dizziness, GI bleed, back pain, seizure, CVA, palpatations, mental health, musculoskeletal)? @ -Differential includes CHF, DVT, cirrhosis, gravity dependent edema this is not an all inclusive list EKG interpreted by me (3pts min.). @ -As above X-rays interpreted by me (1pt min.). @ -Chest X-ray shows no acute process CT interpreted by me (1pt min.). @ -None done U/S interpreted by me (1pt. min.). @ -Ultrasound is negative for DVT What testing was considered but not performed or refused? (CT, X-rays, U/S, labs)? Why? @ -None What meds were considered but not given or refused? Why? @ -None Did you discuss the management of the patient with other professionals (mario lacey i.e. , PA, GEOPHYSICAL SUPPORT SPECIALIST, lab, RT, psych nurse, social sciences chair, hot box spotter, teacher, accounting officer, employment evaluator/case manager)? Give summary @ -No Was smoking cessation discussed for >3mins.? @ -No Was critical care preformed (if so, how long)? @ -No Were there social determinants of health that impacted care today? How? (Homelessness, low income, unemployed, alcoholism, drug addiction, transportati on, low edu. Level, literacy, decrease access to med. care, custodial, rehab)? @ -Homelessness Was there de-escalation of care discussed even if they declined (Discuss DNR or withdrawal of care, Hospice)? DNR status @ -No What co-morbidities impacted this encounter? (DM, HTN, Smoking, COPD, CAD, Cancer, CVA, ARF, Chemo, Hep., AIDS, mental health diagnosis, sleep apnea, morbid obesity)? @ -Hypertension Was patient admitted / discharged? Hospital course, mention meds given and route, prescriptions, significant lab abnormalities, going to OR and other pertinent info. @ -Discharge. 52-year-old male presenting with chief complaint of edema to the lower extremities worsening for weeks. No chest pain or difficulty breathing. Dosage lab work is grossly negative including BNP. Negative chest x-ray and venous Doppler study. Patient is resting comfortably. Patient is educated on today's findings on supportive management with elevation and compression stockings, told that he may require a diuretic prescribed by his PCP. Follow-up with PCP. Report back to ER with any new or worsening symptoms. Discussed return parameters and answered all questions. Patient conveyed verbal understanding and agreed to the plan. I discussed this case in detail with my attending Dr. Valentin Undiagnosed new problem with uncertain prognosis? @ -No Drug Therapy requiring intensive monitoring for toxicity (Heparin, Nitro, Insulin, Cardizem)? @ -No Were any procedures done? @ -No Diagnosis/symptom? @ -Edema Acute, or Chronic, or Acute on Chronic? @ -Acute Uncomplicated (without systemic symptoms) or Complicated (systemic symptoms)? @ -Uncomplicated Side effects of treatment? @ -No Exacerbation, Progression, or Severe Exacerbation? @ -No Poses a threat to life or bodily function? How? (Chest pain, [place], [place], pneumonia, PE, COPD, DKA, ARF, appy, cholecystitis, CVA, Diverticulitis, Homicidal, Suicidal, threat to staff... and all critical care pts) @ -No - Lab Data Result diagrams: 05/15/23 01:14 05/15/23 01:14 Lab Results 05/15/23 05/15/23 Range/Units 01:14 01:14 WBC 8.0 (3.8-10.6) k/uL RBC 4.53 (4.30-5.90) m/uL Hgb 14.2 (13.0-17.5) gm/dL Hct 42.8 (39.0-53.0) % MCV 94.4 (80.0-100.0) fL MCH 31.3 (25.0-35.0) pg MCHC 33.1 (31.0-37.0) g/dL RDW 13.1 (11.5-15.5) % Plt Count 160 (150-450) k/uL MPV 9.0 Neutrophils % 71 % Lymphocytes % 18 % Monocytes % 6 % Eosinophils % 4 % Basophils % 0 % Neutrophils # 5.7 (1.3-7.7) k/uL Lymphocytes # 1.5 (1.0-4.8) k/uL Monocytes # 0.4 (0-1.0) k/uL Eosinophils # 0.3 (0-0.7) k/uL Basophils # 0.0 (0-0.2) k/uL Sodium 139 (137-145) mmol/L Potassium 3.8 (3.5-5.1) mmol/L Chloride 104 (98-107) mmol/L Carbon Dioxide 29 (22-30) mmol/L Anion Gap 6 mmol/L BUN 11 (9-20) mg/dL Creatinine 0.76 (0.66-1.25) mg/dL Est GFR (CKD-EPI)AfAm >90 (>60 ml/min/1.73 sqM) Est GFR (CKD-EPI)NonAf >90 (>60 ml/min/1.73 sqM) Glucose 117 H (74-99) mg/dL Calcium 9.1 (8.4-10.2) mg/dL Total Bilirubin 1.1 (0.2-1.3) mg/dL AST 28 (17-59) U/L ALT 29 (4-49) U/L Alkaline Phosphatase 57 (38-126) U/L NT-Pro-B Natriuret Pep 262 pg/mL Total Protein 6.8 (6.3-8.2) g/dL Albumin 3.9 (3.5-5.0) g/dL Disposition Clinical Impression: Lower extremity edema Disposition: HOME SELF-CARE Condition: Good Instructions (If sedation given, give patient instructions): Leg Edema (ED) Additional Instructions: Follow-up with PCP. Report back to ER with any new or worsening symptoms. Use compression stockings and elevate the legs when possible Is patient prescribed a controlled substance at d/c from ED?: No Referrals: [facility] [Primary Care Provider] - 1-2 days Time of Disposition: 05:05
--- NOTE | 2023-05-15 04:53 | XR ---
EXAMINATION TYPE: XR chest 2V DATE OF EXAM: 05/15/2023 1:57 AM COMPARISON: None TECHNIQUE: XR chest 2V Frontal and lateral views of the chest. CLINICAL INDICATION:Male, 52 years old with history of discomfort; FINDINGS: Lungs/Pleura: There is no evidence of pleural effusion, focal consolidation, or pneumothorax. Pulmonary vascularity: Unremarkable. Heart/mediastinum: Cardiomediastinal silhouette is unremarkable. Musculoskeletal: No acute osseous pathology. IMPRESSION: No acute cardiopulmonary disease/process.
[2023-05-15 05:32] VITALS: BP 175/84; PULSE 58
== END 2023-05-15 05:32 | disposition home or self-care (01) ==
LOC: EC 00:15
DX: R60.0 Localized edema (principal); I10 Essential (primary) hypertension; G47.30 Sleep apnea, unspecified; F41.9 Anxiety disorder, unspecified; F31.9 Bipolar disorder, unspecified; F12.90 Cannabis use, unspecified, uncomplicated; Z87.891 Personal history of nicotine dependence; Z79.82 Long term (current) use of aspirin; Z79.899 Other long term (current) drug therapy; Z88.6 Allergy status to analgesic agent; Z88.8 Allergy status to other drugs, medicaments and biological substances; Z88.5 Allergy status to narcotic agent
CPT/HCPCS: 36415; 71046; 80053; 83880; 85025; 93005; 93970; 99284

== ENCOUNTER → 2024-06-05 | Outpatient (CLI) | payer OTHER | LOC: PNWHC3 13:15 | PROVIDERS: ATTEND Specialist | DX: M51.27 Other intervertebral disc displacement, lumbosacral region | CPT/HCPCS: 99211 ==

== ENCOUNTER 2024-06-22 09:19 | Day surgery (SDC) | payer OTHER ==
[2024-06-22] MEDS ORDERED: ROPIVACAINE 5MG/ML 20ML VIAL ONE (11:08)
[2024-06-22] MEDS ORDERED: methylPREDNISolone ACETATE 80 MG/ML 1 ML VIAL ONE (11:08)
[2024-06-22] MEDS ORDERED: IOPAMIDOL M300 15ML VIAL ONE (11:08)
--- NOTE | 2024-08-01 18:20 | FL ---
EXAMINATION TYPE: FL guided pain mgmt statistic DATE OF EXAM: 06/29/2024 3:28 PM COMPARISON: Pre Operative Images if available both CT/MRI or plain film CLINICAL INDICATION: Male, 54 years old with history of [facility]; TECHNIQUE: FL guided pain mgmt statistic, multiple fluoroscopic images provided for procedure. Total fluoroscopy time: 18 seconds Total submitted images to PACS: 2 DAP: [id number] mGym2 Gycm2 uGym2 cGycm2 or equivalent. FINDINGS: Fluoroscopic images during injection for pain management demonstrate multilevel degeneration changes throughout the spine. No evidence for fracture. No acute process identified. IMPRESSION: 1. No evidence for intraoperative complication. 2. Please see the operative/procedural note for further details. [facility], , 08/01/2024 6:17 PM
== END 2024-06-22 12:00 ==
LOC: ORPAIN 09:19
PROVIDERS: ATTEND Pain Medicine Interventional Pain Medicine
DX: M47.26 Other spondylosis with radiculopathy, lumbar region (principal); I10 Essential (primary) hypertension; Z79.82 Long term (current) use of aspirin; Z88.8 Allergy status to other drugs, medicaments and biological substances; Z88.6 Allergy status to analgesic agent
CPT/HCPCS: 62323

== ENCOUNTER → 2024-09-06 | Outpatient (CLI) | payer OTHER ==
[2024-09-06 14:02] VITALS: RESP 16; TEMP 97.1
--- NOTE | 2024-09-06 15:19 | P.PAINPG ---
PQRS Measure Charge Sheet Comment: A 54 yr old male with a history of severe and chronic LBP secondary to radiculopathy, spondylosis with facet arthropathy without myelopathy presents today for evaluation s/p EIS L5-S1 #1. Pt states he experienced 75% pain relief x 1 wk s/p procedure. Pain level is provoked at 8 /10 in intensity, constant, l ocalized in the lumbar spine, sharp in character w shooting towards the buttocks, hips and LEs. Pain is provoked by over activity. Pain is alleviated with PT x 6 wks in 2021 which was ineffective, physician guided exercises every other day since 2021, use of cane for ambulation, medications, repositioning and rest. Interventional pain procedures completed include SULMA L5-S1 x2 (Jun 2024), R MBB L3-L5 x1 Patient is currently on Naproxen, +THC Patient denies any side effects of the medication(s), denies excessive drowsiness or sleepiness, denies suicidal ideation and reports that the current pain medication is helping to control the pain and improve activities of daily living. Patient denies any motor or sensory deficits. Patient denies any fever or night sweats, denies any change in the bowel movements or urination. Physical Examination: -Constitutional: Cooperative. Not in acute distress . - Neurologic: Cranial nerve II to XII intact. No focal neurological deficits. - Psychatric: Alert & oriented x 3. Matching mood & appropriate affect. Judgment and insight intact. - Musculoskeletal: Cervical spine: Muscle bulk/ tone/ strength in the bilateral upper extremities normal Vertebral body tenderness to palpation over Spurling test positive Distraction test positive Facet loading test positive Thoracic spine Muscle bulk / tone/ strength in the bilateral paraspinal muscles normal Vertebral body tender to palpation over Facet loading test positive Lumbar spine: Motor bulk/ tone/ strength lower extremities , thigh and legs : 5/5 Deep tendon reflexes : Normal Knee Jerk. Normal Ankle Jerk . Vertebral body tenderness to palpation over L3, L4, L5 Lumbar Facet Loading Test positive Straight Leg Raise: positive at 30 degrees right side/ left side Gaenslen's Test positive Sacral spine : Severe tenderness over the Sacroiliac joint: right side / left side Range of motion: Flexion of the lumbar spine <60 degrees Range of motion: Extension of the lumbar spine <20 degrees Gaenslen's Test positive BL Corrine test: positive right side / left side Thigh Thrust Test Sacral Thrust Test BL positive Assessment and plan: Chronic LBP secondary to radiculopathy, spondylosis with facet arthropathy without myelopathy, BL Sacroiliitis Recommendation of BL SI injection #1. Risks, benefits of procedure discussed and pt verbalized understanding. Admits to anticoagulant use or medical history of diabetes. Protocol for discontinuation/ continuation of medications olivia procedure discussed. All patient questions answered I have spent less than 30 minutes on patient care today. Dr Mcgee was available by phone for the evaluation of this patient. The time was used to review the medical records including relevant urine studies and Prescription his tory (MAPs), review of the available imaging, evaluation and examination of the patient, coordination of care with the medical staff and if applicable referring physicians, as well as creation of the medical record PQRS Narrative: Smoking Status Current every day smoker Hx Alcohol Use (MH) No Home Medications: Ambulatory Orders Aspirin EC [Ecotrin Low Dose] 81 mg PO DAILY 07/27/22 Bisoprolol/Hydrochlorothiazide [Bisoprolol/Hydrochlorothiazide 10-6.25 mg] 1 each PO HS 07/27/22 [place] Carbonate 900 mg PO HS 07/27/22 Losartan Potassium [Cozaar] 100 mg PO HS 07/27/22 QUEtiapine FUMARATE [SEROquel] 200 mg PO HS 07/27/22 QUEtiapine [SEROquel] 25 - 50 mg PO HS PRN 07/27/22 Sertraline [Zoloft] 100 mg PO BID 07/27/22 cloNIDine HCL [Catapres] 0.6 mg PO HS 07/27/22 tiZANidine HCL [Zanaflex] 4 mg PO TID PRN 07/27/22 Controlled Substance Measures - Controlled Substance Measures Is patient prescribed a controlled substance at discharge?: No
== END ==
LOC: PNWHC3 13:43
PROVIDERS: ATTEND Specialist
DX: M47.26 Other spondylosis with radiculopathy, lumbar region (principal); M46.1 Sacroiliitis, not elsewhere classified; F17.200 Nicotine dependence, unspecified, uncomplicated; Z88.8 Allergy status to other drugs, medicaments and biological substances
CPT/HCPCS: 99211

== ENCOUNTER 2024-09-15 11:04 | Day surgery (SDC) | payer OTHER ==
[~2024-09-15 11:04] MED LIST changes: -LIDOCAINE 1% (10MG/ML) FOR IV START INTRADERMA PRN
[2024-09-15] MEDS ORDERED: methylPREDNISolone ACETATE 80 MG/ML 1 ML VIAL ONE (12:15)
[2024-09-15] MEDS ORDERED: ROPIVACAINE 5MG/ML 20ML VIAL ONE (12:15)
[2024-09-15] MEDS ORDERED: IOPAMIDOL M200 10 ML VIAL ONE (12:15)
--- NOTE | 2024-09-15 12:29 | P.PCN ---
Date of Procedure: 09/15/24 Procedure(s) Performed: Procedure= bilateral sacroiliac joints steroid injection under fluoroscopy guidance (fluoroscopy image stored on file in the radiology Department ) Preoperative diagnosis= 1-sacroiliitis 2-lumbar degenerative disc disease 3- lumbar facet arthropathy Postoperative diagnosis=Same as preop Diagnosis . Complication = none Condition= stable Anesthesia= local anesthesia with ropivacaine 0.5% 4 ml only Indication for the procedure= patient complaining of low back pain , examination was positive for severe tenderness over the sacroiliac joints bilaterally and patient diagnosed with sacroiliitis, for this reason he was good candidate for sacroiliac joint steroid injection. Description of the procedure= procedure risk and benefits discussed with the patient, including but not limited, risk of infection and bleeding, and ALLERGIC reaction to the medication and not complete pain relief and patient agreed with the preceding patient taken to the operating room, placed in prone position or standard monitors applied to the patient then after induction of anesthesia back prepped with chlorhexidine 3 times , Then under strict sterile technique, first I did the right sacroiliac joint the which was identified under fluoroscopy guidance been local infiltration of the skin and subcu interstitial with lidocaine 1% then 22-gauge Quincke Needle advanced slowly under fluoroscopy and placed in the right sacroiliac joint needle placement confirmed with AP and oblique and lateral view, then after that Isovue 200 one mL injected which confirmed the correct needle placement with the appropriate arthrogram of the sacroiliac joint, and after appropriate needle placement confirmed and after negative aspiration, or heme , then Ropivacaine 0.5% 2 mL, and 40 mg of Depo-Medrol mixed together and injected in the right sacroiliac joint after negative aspiration patient tolerated the procedure well without any complication. Then the left sacroiliac joint steroid injection done under strict sterile technique local infiltration of the skin and subcu interstitial at the location of the left sacroiliac joint then a 22-gauge Quincke Needle advanced slowly under fluoroscopy time placed in the left sacroiliac joint, needle placement confirmed with AP and oblique and lateral view then after appropriate needle placement confirmed, with the AP and oblique and lateral then after negative aspiration Isovue 200 1 mL injected showed arthropathy of the left sacroiliac joint, and after negative aspiration 0.5% Ropivacaine 2 mL and 40 mg of Depo- Medrol injected in the left sacroiliac joint after negative aspiration patient tolerated the procedure well that any complications and she will follow up in clinic 3 weeks
[2024-09-15 12:34] VITALS: BP 128/85; PULSE 52; RESP 18
--- NOTE | 2024-09-15 12:36 | FL ---
Intraoperative/procedural fluoroscopic services were provided for bilateral SI joint pain management. Total fluoroscopy time is 15.7 seconds with a total of 8 submitted images to PACS. Total DAP 0.98653 mGym2. Please see the operative note for further details. [facility], , 09/15/2024 12:34 PM
== END 2024-09-15 13:28 | disposition home or self-care (01) ==
LOC: ORPAIN 11:04
PROVIDERS: ATTEND Specialist
DX: M46.1 Sacroiliitis, not elsewhere classified (principal); M51.361 Other intervertebral disc degeneration, lumbar region with lower extremity pain only; Z88.8 Allergy status to other drugs, medicaments and biological substances; Z88.5 Allergy status to narcotic agent
CPT/HCPCS: 62323; Q9966; J2795; J1010; G0260

== ENCOUNTER → 2024-10-02 | Outpatient (CLI) | payer OTHER ==
[2024-10-02 14:01] VITALS: BP 133/87; PULSE 58; RESP 16; TEMP 97.3
--- NOTE | 2024-10-02 16:24 | P.PAINPG ---
PQRS Measure Charge Sheet Comment: A 54 yr old male with a history of severe and chronic LBP secondary to radiculopathy, spondylosis with facet arthropathy without myelopathy, BL Sacroiliitis presents today for evaluation s/p BL SI injection #1. Pt states he experienced 80% pain relief x 2 wks s/p procedure. Pain level is provoked at 8 /10 in intensity, constant, localized in the lumbar spine, sharp in character w shooting pain down the back of the LEs L> R. Pain is provoked by over activity. Pain is alleviated with PT x 6 wks in 2021 which was ineffective, physician guided exercises every other day since 2021, use of cane for ambulation, medications, THC, repositioning and rest. Interventional pain procedures completed include SULMA L5-S1 x2 (Jun 2024), R MBB L3-L5 x1 Patient is currently on Tramadol, Naproxen, +THC Patient denies any side effects of the medication(s), denies excessive drowsiness or sleepiness, denies suicidal ideation and reports that the current pain medication is helping to control the pain and improve activities of daily living. Patient denies any motor or sensory deficits. Patient denies any fever or night sweats, denies any change in the bowel movements or urination. Physical Examination: -Constitutional: Cooperative. Not in acute distress . - Neurologic: Cranial nerve II to XII intact. No focal neurological deficits. - Psychatric: Alert & oriented x 3. Matching mood & appropriate affect. Judgment and insight intact. - Musculoskeletal: Cervical spine: Muscle bulk/ tone/ strength in the bilateral upper extremities normal Vertebral body tenderness to palpation over Spurling test positive Distraction test positive Facet loading test positive Thoracic spine Muscle bulk / tone/ strength in the bilateral paraspinal muscles normal Vertebral body tender to palpation over Facet loading test positive Lumbar spine: Motor bulk/ tone/ strength lower extremities , thigh and legs : 5/5 Deep tendon reflexes : Normal Knee Jerk. Normal Ankle Jerk . Vertebral body tenderness to palpation over L5 Young test positive BL L5-S1 Lumbar Facet Loading Test positive Straight Leg Raise: positive at 30 degrees right side/ left side Gaenslen's Test positive Sacral spine : Severe tenderness over the Sacroiliac joint: right side / left side Range of motion: Flexion of the lumbar spine <60 degrees Range of motion: Extension of the lumbar spine <20 degrees Gaenslen's Test positive BL Corrine test: positive right side / left side Thigh Thrust Test Sacral Thrust Test BL positive Assessment and plan: Chronic LBP secondary to radiculopathy, spondylosis with facet arthropathy without myelopathy, BL Sacroiliitis Recommendation of SULMA L5-S1 #1. Risks, benefits of procedure discussed and pt verbalized understanding. Admits to anticoagulant use or medical history of diabetes. Protocol for discontinuation/ continuation of medications olivia procedure discussed. All patient questions answered I have spent less than 30 minutes on patient care today. Dr Mcgee was available by phone for the evaluation of this patient. The time was used to review the medical records including relevant urine studies and Prescription history (MAPs), review of the available imaging, evaluation and examination of the patient, coordination of care with the medical staff and if applicable referring physicians, as well as creation of the medical record - Pain Location Bilateral Lower Back Non-Pharmacological Interventions: Chiropractic Treatment, Heat, Can Feeder apy, Position/Reposition, Relaxation Technique Pharmacological Interventions: Epidural, PRN Medication, Scheduled Medication PQRS Narrative: Smoking Status Current every day smoker Hx Alcohol Use (MH) No Home Medications: Ambulatory Orders Aspirin EC [Ecotrin Low Dose] 81 mg PO DAILY 07/27/22 [place] Carbonate 1,200 mg PO HS 07/27/22 Losartan Potassium [Cozaar] 100 mg PO HS 07/27/22 QUEtiapine FUMARATE [SEROquel] 400 mg PO HS 07/27/22 Sertraline [Zoloft] 50 mg PO DAILY 07/27/22 cloNIDine HCL [Catapres] 0.3 mg PO BID 07/27/22 Cholecalciferol [Vitamin D3 (25 Mcg = 1000 Iu)] 1 tab PO DAILY 09/13/24 Rosuvastatin [Crestor] 10 mg PO HS 09/13/24 Controlled Substance Measures - Controlled Substance Measures Is patient prescribed a controlled substance at discharge?: No
== END ==
LOC: PNWHC3 13:50
PROVIDERS: ATTEND Specialist
DX: M47.27 Other spondylosis with radiculopathy, lumbosacral region (principal); M46.1 Sacroiliitis, not elsewhere classified; Z88.8 Allergy status to other drugs, medicaments and biological substances; F17.210 Nicotine dependence, cigarettes, uncomplicated
CPT/HCPCS: 99211

== ENCOUNTER 2024-10-20 09:49 | Day surgery (SDC) | payer OTHER ==
[2024-10-20] MEDS ORDERED: LACTATED RINGERS 1,000 ML IV SCH (10:57)
[2024-10-20 11:21] VITALS: RESP 16; TEMP 96.7
[2024-10-20] MEDS ORDERED: IOPAMIDOL M300 15ML VIAL ONE (12:21)
[2024-10-20] MEDS ORDERED: methylPREDNISolone ACETATE 80 MG/ML 1 ML VIAL ONE (12:21)
--- NOTE | 2024-10-20 12:42 | P.PCN ---
Description of Procedure: PREOPERATIVE DIAGNOSIS: 1- Lumbar Degenerative Disc Diseases 2-Lumbar spondylosis with Facet arthropathy without myelopathy. 3-lumbar spinal stenosis POSTOPERATIVE DIAGNOSIS: 1-lumbar degenerative disc disease. 2-lumbar spondylosis with facet arthropathy without myelopathy. 3-lumbar spinal stenosis. PROCEDURE Injection of radio contrast material into L5-S1 interspace, interpretation of epidurogram, injection of steroid at L5-S1 epidural space under fluoroscopic guidance. ANESTHESIA: Lidocaine 1% subcutaneously. In OR continuous pulse ox, EKG, blood pressure and verbal communication was maintained with the patient. EBL: Minimal PROCEDURE INDICATION: Before the procedure were discussed with the patient detailed procedure, alternatives, complications including infection, bleeding, nerve damage, paralysis all of which could be permanent. Patient understands and all questions were answered. PROCEDURE DESCRIPTION : After getting consent, patient in OR in prone position. Back was prepped with chlorhexidine and draped in sterile fashion. After injecting 10 mL of 1% lidocaine subcutaneously, a 20-gauge Tuohy needle was introduced at L5-S1 interspace with loss of resistance technique using a syringe filled with air. Negative CSF, negative blood, negative paresthesia. Needle position was confirmed with AP and lateral view of the fluoroscope. After repeat negative aspiration 2 mL of Omnipaque 200 water soluble contrast was injected. Contrast was noted in the epidural space. No contrast was noted into intrathecal or intravascular space. After repeat negative aspiration 6 mL solution was injected intermittently which consists of 5 mL of preservative-free normal saline mixed with 1 mL of 80 mg Depo-Medrol. Needle was withdrawn intact. Skin was cleansed and Band-Aids was applied. DISPOSITION / PLANS: The patient tolerated the procedure well. No complication. The patient was placed in a supine position and transferred to the recovery area in a stable condition for observation. There was no evidence of lower extremity motor or sensory deficit after the procedure. Patient was discharged from the recovery room after meeting discharge criteria. Home discharge instructions were given to the patient by the staff. The patient was reexamined prior to discharge. The patient will schedule a follow up in the clinic in 2-4 weeks.
--- NOTE | 2024-10-20 12:46 | FL ---
Intraoperative/procedural fluoroscopic services were provided for lumbar epidural steroid injection. Total fluoroscopy time is 22.7 seconds with a total of 3 submitted images to PACS. Total DAP 0.54421 mGym2. Please see the operative note for further details. [facility], , 10/20/2024 12:44 PM
[2024-10-20 12:47] VITALS: PULSE 51
[2024-10-20 13:05] VITALS: BP 107/70
== END 2024-10-20 13:13 | disposition home or self-care (01) ==
LOC: ORPAIN 09:49
PROVIDERS: ATTEND Pain Medicine Interventional Pain Medicine
DX: M48.061 Spinal stenosis, lumbar region without neurogenic claudication (principal); M47.816 Spondylosis without myelopathy or radiculopathy, lumbar region; M51.369 Other intervertebral disc degeneration, lumbar region without mention of lumbar back pain or lower extremity pain; Z79.82 Long term (current) use of aspirin; Z79.899 Other long term (current) drug therapy; Z88.8 Allergy status to other drugs, medicaments and biological substances
CPT/HCPCS: 62323; Q9967; J1010

== ENCOUNTER → 2025-02-05 | Outpatient (CLI) | payer OTHER ==
[2025-02-05 08:14] VITALS: BP 138/86; PULSE 63; RESP 16
--- NOTE | 2025-02-05 13:26 | P.PAINPG ---
PQRS Measure Charge Sheet Comment: A 54 yr old male with a history of severe and chronic LBP secondary to radiculopathy, spondylosis with facet arthropathy without myelopathy, BL Sacroiliitis presents today for evaluation s/p SULMA L5-S1 #1. Pt states he experienced 80% pain relief x 3.5 mo s/p procedure. Pain level is provoked at 8 /10 in intensity, constant, localized in the L lumbar spine, sharp in character w shooting pain down the back of the LLE. Pain is provoked by over activity. Pain is alleviated with PT x 6 wks in 2021 which was ineffective, physician guided exercises every other day since 2021, use of cane for ambulation, medications, THC, repositioning and rest. Interventional pain procedures completed include BL SI x1, SULMA L5-S1 x3 (06/24, 10/24), R MBB L3-L5 x1 Patient is currently on Tramadol, Naproxen, +THC Patient denies any side effects of the medication(s), denies excessive drowsiness or sleepiness, denies suicidal ideation and reports that the current pain medication is helping to control the pain and improve activities of daily living. Patient denies any motor or sensory deficits. Patient denies any fever or night sweats, denies any change in the bowel movements or urination. Physical Examination: -Constitutional: Cooperative. Not in acute distress . - Neurologic: Cranial nerve II to XII intact. No focal neurological deficits. - Psychatric: Alert & oriented x 3. Matching mood & appropriate affect. Judgment and insight intact. - Musculoskeletal: Cervical spine: Muscle bulk/ tone/ strength in the bilateral upper extremities normal Vertebral body tenderness to palpation over Spurling test positive Distraction test positive Facet loading test positive Thoracic spine Muscle bulk / tone/ strength in the bilateral paraspinal muscles normal Vertebral body tender to palpation over Facet loading test positive Lumbar spine: Motor bulk/ tone/ strength lower extremities , thigh and legs : 5/5 Deep tendon reflexes : Normal Knee Jerk. Normal Ankle Jerk . Vertebral body tenderness to palpation over L5 Young test positive L L5-S1 Lumbar Facet Loading Test positive Straight Leg Raise: positive at 30 degrees right side/ left side Gaenslen's Test positive Sacral spine : Severe tenderness over the Sacroiliac joint: right side / left side Range of motion: Flexion of the lumbar spine <60 degrees Range of motion: Extension of the lumbar spine <20 degrees Gaenslen's Test positive BL Corrine test: positive right side / left side Thigh Thrust Test Sacral Thrust Test BL positive Assessment and plan: Chronic LBP secondary to radiculopathy, spondylosis with facet arthropathy without myelopathy, BL Sacroiliitis Recommendation of L paramedian SULMA L5-S1 #2. Risks, benefits of procedure discussed and pt verbalized understanding. Protocol for discontinuation/ continuation of medications olivia procedure discussed. All patient questions answered I have spent less than 30 minutes on patient care today. Dr Mcgee was available by phone for the evaluation of this patient. The time was used to review the medical records including relevant urine studies and Prescription history (MAPs), review of the available imaging, evaluation and examination of the patient, coordination of care with the medical staff and if applicable referring physicians, as well as creation of the medical record PQRS Narrative: Smoking Status Current every day smoker Hx Alcohol Use (MH) No Home Medications: Ambulatory Orders Aspirin EC [Ecotrin Low Dose] 81 mg PO DAILY 07/27/22 [place] Carbonate 1,200 mg PO HS 07/27/22 Losartan Potassium [Cozaar] 100 mg PO HS 07/27/22 QUEtiapine FUMARATE [SEROquel] 400 mg PO HS 07/27/22 cloNIDine HCL [Catapres] 0.3 mg PO BID 07/27/22 Cholecalciferol [Vitamin D3 (25 Mcg = 1000 Iu)] 1 tab PO DAILY 09/13/24 Rosuvastatin [Crestor] 10 mg PO HS 09/13/24 Famotidine 20 mg PO DAILY 10/20/24 Naproxen [Naprosyn] 500 mg PO BID 10/20/24 amLODIPine [Norvasc] 10 mg PO DAILY 10/20/24 oxyBUTYnin chloride [Ditropan] 5 mg PO BID 10/20/24 traMADol HCL 50 mg PO Q6H 10/20/24 Controlled Substance Measures - Controlled Substance Measures Is patient prescribed a controlled substance at discharge?: No
== END ==
LOC: PNWHC3 07:57
PROVIDERS: ATTEND Specialist
DX: M47.27 Other spondylosis with radiculopathy, lumbosacral region (principal); G89.29 Other chronic pain; F12.90 Cannabis use, unspecified, uncomplicated; F17.210 Nicotine dependence, cigarettes, uncomplicated; Z88.5 Allergy status to narcotic agent; Z88.8 Allergy status to other drugs, medicaments and biological substances
CPT/HCPCS: 99211

== ENCOUNTER → 2025-02-23 | Day surgery (SDC) | payer OTHER ==
[~2025-02-23] MED LIST changes: +IOPAMIDOL M200 10 ML VIAL ONE; +methylPREDNISolone ACETATE 80 MG/ML 1 ML VIAL ONE
[2025-02-23 10:33] VITALS: RESP 16; TEMP 97
--- NOTE | 2025-02-23 11:36 | P.PCN ---
Description of Procedure: PREOPERATIVE DIAGNOSIS: 1- Lumbar Degenerative Disc Diseases 2-Lumbar spondylosis with Facet arthropathy without myelopathy. 3-lumbar spinal stenosis POSTOPERATIVE DIAGNOSIS: 1-lumbar degenerative disc disease. 2-lumbar spondylosis with facet arthropathy without myelopathy. 3-lumbar spinal stenosis. PROCEDURE Injection of radio contrast material into L5-S1 interspace, interpretation of epidurogram, injection of steroid at L5-S1 left paramedian epidural space under fluoroscopic guidance. ANESTHESIA: Lidocaine 1% subcutaneously. In OR continuous pulse ox, EKG, blood pressure and verbal communication was maintained with the patient. EBL: Minimal PROCEDURE INDICATION: Before the procedure were discussed with the patient detailed procedure, alternatives, complications including infection, bleeding, nerve damage, paralysis all of which could be permanent. Patient understands and all questions were answered. PROCEDURE DESCRIPTION : After getting consent, patient in OR in prone position. Back was prepped with chlorhexidine and draped in sterile fashion. After injecting 10 mL of 1% lidocaine subcutaneously, a 20-gauge Tuohy needle was introduced at L5-S1 interspace with loss of resistance technique using a syringe filled with air. Negative CSF, negative blood, negative paresthesia. Needle position was co nfirmed with AP and lateral view of the fluoroscope. After repeat negative aspiration 2 mL of Omnipaque 200 water soluble contrast was injected. Contrast was noted in the epidural space. No contrast was noted into intrathecal or intravascular space. After repeat negative aspiration 6 mL solution was injected intermittently which consists of 5 mL of preservative-free normal saline mixed with 1 mL of 80 mg Depo-Medrol. Needle was withdrawn intact. Skin was cleansed and Band-Aids was applied. DISPOSITION / PLANS: The patient tolerated the procedure well. No complication. The patient was placed in a supine position and transferred to the recovery area in a stable condition for observation. There was no evidence of lower extremity motor or sensory deficit after the procedure. Patient was discharged from the recovery room after meeting discharge criteria. Home discharge instructions were given to the patient by the staff. The patient was reexamined prior to discharge. The patient will schedule a follow up in the clinic in 2-4 weeks.
[2025-02-23 11:51] VITALS: BP 121/80; PULSE 50
--- NOTE | 2025-02-23 12:15 | FL ---
Fluoroscopy INDICATION: Pain FINDINGS: Fluoroscopy time: 5.2 seconds. Total dose area product (DAP) in uGy*m?, mGy*cm? (or similar): 0.98180 Images obtained: 0. Images document needle directed towards the lumbar spine region IMPRESSION: 1. Documentation of fluoroscopy. [facility], Workstation: [facility], 02/23/2025 12:13 PM
== END ==
LOC: ORPAIN 09:32
PROVIDERS: ATTEND Pain Medicine Interventional Pain Medicine
DX: M51.369 Other intervertebral disc degeneration, lumbar region without mention of lumbar back pain or lower extremity pain (principal); M47.816 Spondylosis without myelopathy or radiculopathy, lumbar region; M48.061 Spinal stenosis, lumbar region without neurogenic claudication
CPT/HCPCS: 62323; Q9966; J1010